=== PATIENT | female | born 1965 | race Caucasian/White ===

== ENCOUNTER 2023-02-18 07:21 | Day surgery (SDC) | payer OTHER, SELFPAY ==
[2023-02-18 07:39] VITALS: BMI 25.7
[2023-02-18 07:47] VITALS: BP 113/54; PULSE 61; RESP 16; TEMP 36.8; O2SAT 100
[2023-02-18 09:30] VITALS: BP 92/47; PULSE 71; RESP 16; TEMP 36.2; O2SAT 96
--- NOTE | 2023-02-18 09:30 | P.BOP_ITS ---
Brief Operative Note Date of Service: 02/18/23 Pre-op diagnosis: Spears's esophagus Post-op diagnosis: other (Same, Hiatal hernia) Procedure: EGD with biopsies Surgeon: Julio C Warren Anesthesia: MAC Was an Customer Insight Analyst used for this Procedure?: No Estimated blood loss (mL): 2.0 Pathology: other (A. EG Junction at 33cm) Condition: stable Disposition: PACU
--- NOTE | 2023-02-18 09:32 | P.BOP_ITS ---
I completed a Brief op note for this case. Brief Operative Note Date of Service: 02/18/23 Pre-op diagnosis: GERD, Spears's Esophagus Post-op diagnosis: other (Same, Hiatal hernia) Procedure: EGD with biopsies Surgeon: Julio C Warren Anesthesia: MAC Was an Assistant Golf Professional used for this Procedure?: No Estimated blood loss (mL): 2.0 Pathology: other (A. EG Junction at 33cm) Condition: stable Disposition: PACU
[2023-02-18 09:45] VITALS: BP 113/61; PULSE 74; RESP 16; TEMP 36.5; O2SAT 99
--- NOTE | 2023-02-18 10:14 | P.CONAN_ITS ---
HPI - Anesthesia Eval Consult details Narrative: screening [facility] Past Medical History Medical History (Updated 02/17/23 @ 11:58 by Carrie Oliver NP) Anxiety Back pain GERD (gastroesophageal reflux disease) History of ETOH abuse RLS (restless legs syndrome) Seasonal allergies Family History Family history of problems with anesthesia: No Surgical History Surgical History (Updated 02/18/23 @ 07:43 by Rosario Leslie) H/O carpal tunnel repair Hx of tonsillectomy Post-splenectomy (~1972) Status post trigger finger release History of Problems with Anesthesia: No Social History Social History Patient Tobacco Use Status: Former Tobacco user Quit Date: 2015 Tobacco use type: Cigarette Years Smoked: 15 Smoked in Last 30 Days: No Use of substances other than those prescribed or required for medical reasons: No Are you DNR?: No Advance Directives: No Advance Directives Information Provided: Yes Meds Allergies Allergy/AdvReac Type Severity Reaction Status Date / Time clarithromycin [From Biaxin] Allergy Intermediate Nausea Verified 02/18/23 07:45 Home Medications Medication Instructions Recorded Confirmed Last Taken Type buspirone 5 mg tablet 5 mg PO BID 02/17/23 02/17/23 Unknown History clonidine HCl 0.2 mg tablet 0.2 mg PO BEDTIME 02/17/23 02/17/23 Unknown History fluticasone propionate 50 1 spray intranasal DAILY 02/17/23 02/17/23 Unknown History mcg/actuation nasal spray,suspension gabapentin 300 mg tablet 300 mg PO DAILY 02/17/23 02/17/23 Unknown History omeprazole 20 mg capsule,delayed 20 mg PO DAILY 02/17/23 02/17/23 Unknown History release pramipexole 0.25 mg tablet 0.25 mg PO DAILY 02/17/23 02/17/23 Unknown History sertraline 25 mg tablet 25 mg PO DAILY 02/17/23 02/17/23 Unknown History spironolactone 50 mg tablet 50 mg PO DAILY 02/17/23 02/17/23 Unknown History suvorexant 20 mg tablet (Belsomra) 20 mg PO BEDTIME 02/17/23 02/17/23 Unknown History Exam Exam Date and Time: February 18, 2023 1014 Height,Weight and Vital Signs: Height 5 ft 3 in Weight 65.771 kg Last Vital Signs Temp 97.7 F 02/18/23 09:45 Pulse 74 02/18/23 09:45 Resp 16 02/18/23 09:45 BP 113/61 02/18/23 09:45 Pulse Ox 99 02/18/23 09:45 O2 Del Method Room Air 02/18/23 09:45 Airway Mallampati Class: I TM Dist: >3cm Neck ROM: Full Loose/Missing/Broken Teeth: No Heart: rr Lungs: cta Assessment and Plan Assessment Anesthesia Assessment: Anesthesia Plan Discussed and Chart Reviewed Final Anesthetic Review Family History of Problems with Anesthesia: No History of Problems with Anesthesia: No NPO: Yes ASA Class: II Final Preanesthetic Review: No Changes in Pt Med Stat, Meds/Allgs Chart Reviewed and Consent Obtained/Reviewed Patient Risk: Low Anesthetic Plan Anesthetic Plan: MAC: Disposition: Standard PACU
--- NOTE | 2023-02-18 10:17 | OP_ITS ---
DATE OF SERVICE: 02/18/2023 SURGEON: Julio C Warren MD INDICATIONS: The patient presents for evaluation of gastroesophageal reflux and Spears's esophagus. Full consent was obtained from her for this, including risks of bleeding and perforation. PREOPERATIVE DIAGNOSIS: POSTOPERATIVE DIAGNOSIS: PROCEDURE PERFORMED: Esophagogastroduodenoscopy with biopsy. ESTIMATED BLOOD LOSS: COMPLICATIONS: ANESTHESIA: Monitored anesthesia care. ASSISTANTS: SPECIMENS: PREOPERATIVE DIAGNOSES: Gastroesophageal reflux and Spears's esophagus. POSTOPERATIVE DIAGNOSES: Gastroesophageal reflux and Spears's esophagus, hiatal hernia. DESCRIPTION OF PROCEDURE: The patient was placed in the left lateral decubitus position. The Olympus video gastroscope was passed in the posterior oropharynx and upper esophagus under direct vision. The scope was passed slowly to the distal esophagus. The gastroesophageal junction appeared at 33 cm. Extending from this for less than 1 cm, there were 2 thin projections of Spears's-appearing mucosa. There is no evidence of any esophagitis nor any lesions. The scope entered the stomach. There was a moderate-sized hiatal hernia. The hiatal hernia mucosa appeared normal. The scope was advanced to the pylorus and the duodenum was cannulated to the descending portion. The duodenum including the bulb appeared normal without mass or ulceration. The scope was withdrawn back to the stomach. The gastric antrum and body appeared normal with good peristalsis. The scope was retroflexed visualizing the proximal stomach carefully, which appeared normal, without any sign of mass or ulceration. The scope was straightened and withdrawn back to the esophagus. Biopsies were obtained just above the EG junction from the small areas of Spears's-appearing mucosa. The scope was withdrawn through the remainder of the esophagus, which appeared normal. The scope was withdrawn from the patient. She tolerated the procedure well and was returned to recovery area in stable condition. IMPRESSION: 1. Small area of possible Spears s esophagus. 2. Hiatal hernia. PLAN: The results of the pathology will be checked. Assuming there is no dysplasia, I would recommend a repeat upper endoscopy in 3 years for further surveillance. She was advised to continue her daily omeprazole as she does report that is working well for her. She will otherwise see me on a p.r.n. basis. MD IZZY Pimentel/MARIA A / [phone] AMAURI
== END 2023-02-18 10:10 | disposition home or self-care (01) ==
PROVIDERS: PCP Physician Assistant; Visit Provider Internal Medicine
PROC: 0DJ08ZZ Inspection of Upper Intestinal Tract, Via Natural or Artificial Opening Endoscopic (ICD-10-PCS; CPT 43235; principal; 2023-02-18 08:30)
DX: K22.70 Barrett's esophagus without dysplasia (principal); K21.9 Gastro-esophageal reflux disease without esophagitis; K44.9 Diaphragmatic hernia without obstruction or gangrene; J30.2 Other seasonal allergic rhinitis; F10.21 Alcohol dependence, in remission; F41.1 Generalized anxiety disorder; Z90.81 Acquired absence of spleen; G25.81 Restless legs syndrome; Z79.899 Other long term (current) drug therapy; Z87.891 Personal history of nicotine dependence
CPT/HCPCS: 43239; 88305

== ENCOUNTER 2023-02-20 08:20 | Emergency (ER) | payer OTHER, SELFPAY ==
--- NOTE | ~2023-02-20 | US_ITS ---
EXAMINATION: US PELVIS CLINICAL INFORMATION: Left lower quadrant tenderness. The pain has subsided at the time of scanning COMPARISON: None available. TECHNIQUE: Ultrasound of the pelvis is performed using both transabdominal and transvaginal transducers along with Doppler. Transvaginal imaging is performed due to inadequate visualization transabdominally. FINDINGS: Uterus: The uterus is anteverted, anteflexed and measures 5.5 x 2.0 x 3.2 cm The double wall endometrial thickness is 0.1 cm. The uterus is smooth in contour and has normal myometrial echogenicity. No visible fibroid. Adnexa: Right ovary measures 1.1 x 0.6 x 0.6 cm and volume 0.2 mL. There is normal arterial and venous flow seen to the right ovary. No focal lesion seen. Left ovary is not visualized. There is no free fluid in the cul-de-sac. US/US pelvic and transvaginal IMPRESSION: Unremarkable uterus and right ovary. The left ovary is not seen..
--- NOTE | ~2023-02-20 | CT_ITS ---
EXAMINATION: CT ABDOMEN AND PELVIS WITH CONTRAST CLINICAL INFORMATION: Left lower quadrant pain COMPARISON: Previous pelvic ultrasound from earlier the same day TECHNIQUE: Multidetector volumetric images were obtained from the superior aspect of the liver through the pubic symphysis following administration 85 mL of Omnipaque 350 intravenous contrast. Sagittal and coronal reformatted images were obtained on the technologist's workstation. Oral contrast: Yes This CT examination was performed using dose optimization techniques as appropriate, variously including the following: *Automated exposure control *Adjustment of mA and/or kV according to patient size (this includes techniques or standardized protocols for targeted exams where dose is matched to indication/reason for exam; i.e. extremities or head) *Use of iterative reconstruction technique DLP: 464 mGy-cm FINDINGS: LUNG BASES: The visualized lung bases are unremarkable. LIVER, GALLBLADDER, AND BILIARY TREE: The liver is normal in size, shape, and attenuation. No focal hepatic lesion or biliary ductal dilatation is present. The gallbladder is unremarkable with no evidence of radiopaque gallstones, gallbladder wall thickening, or obvious pericholecystic inflammatory changes. PANCREAS: Unremarkable. SPLEEN: There is a splenosis or multiple splenules in the left upper quadrant and in the upper midline abdomen anterior to the left lobe of the liver. Largest ADRENAL GLANDS: Unremarkable. KIDNEYS AND URETERS: The kidneys are normal in size, shape, and attenuation. No hydronephrosis, hydroureter, or calculi seen. No perinephric stranding. BLADDER: Unremarkable. GASTROINTESTINAL TRACT: Fluid-filled loops of distal small bowel. 4 cm soft tissue mass in the cecum question representing stool. 8 mm high attenuation lesion adjacent to the lateral wall of the cecum, axial image 58 and coronal reconstructed image 35. Appearance is questionable for a diverticulum versus lymph node or possibly splenule. Constipation. Caliber change in the left colon and mild wall thickening of the mid and distal left colon questionable for mild colitis. Appendix not seen. Stomach is normal. No ascites or free air. ABDOMINAL WALL: Left inguinal hernia containing fat. LYMPH NODES: Prominent small bowel mesentery lymph nodes, largest adjacent to the cecum/proximal right colon. VASCULAR: Unremarkable. PELVIC VISCERA: Unremarkable. OSSEOUS STRUCTURES: Scoliosis and degenerative changes of the spine. CT/CT abdomen pelvis w IV con IMPRESSION: Multiple splenules or accessory spleens in the left upper quadrant and anterior to the lateral segment of the left lobe of the liver. Distended stool-filled proximal colon. Caliber change of the mid left colon question mild colitis of the distal colon and secondary partial obstruction. 4 cm intraluminal soft tissue mass in the cecum, question representing stool. Prominent adjacent mesenteric lymph nodes. 8 mm high attenuation soft tissue mass adjacent to the lateral wall of the cecum. Colonoscopy correlation recommended. Left inguinal hernia containing fat. Fleischner guidelines were followed.
--- NOTE | ~2023-02-20 | US_ITS ---
EXAMINATION: US PELVIS CLINICAL INFORMATION: Left lower quadrant tenderness. The pain has subsided at the time of scanning COMPARISON: None available. TECHNIQUE: Ultrasound of the pelvis is performed using both transabdominal and transvaginal transducers along with Doppler. Transvaginal imaging is performed due to inadequate visualization transabdominally. FINDINGS: Uterus: The uterus is anteverted, anteflexed and measures 5.5 x 2.0 x 3.2 cm The double wall endometrial thickness is 0.1 cm. The uterus is smooth in contour and has normal myometrial echogenicity. No visible fibroid. Adnexa: Right ovary measures 1.1 x 0.6 x 0.6 cm and volume 0.2 mL. There is normal arterial and venous flow seen to the right ovary. No focal lesion seen. Left ovary is not visualized. There is no free fluid in the cul-de-sac. US/US pelvic ovarian doppler IMPRESSION: Unremarkable uterus and right ovary. The left ovary is not seen..
[2023-02-20 08:26] VITALS: BP 150/96; PULSE 72; RESP 20; TEMP 36.6; O2SAT 100; BMI 25.7
--- NOTE | 2023-02-20 09:14 | ED_ITS ---
HPI - Abdominal Pain General Chief Complaint: Abdominal Pain Stated Complaint: pelvic pain Time Seen by Provider: 02/20/23 08:46 Source: patient Mode of arrival: ambulatory Limitations: no limitations History of Present Illness HPI narrative: Patient is a 57 year old female with history of anxiety, GERD presenting with pain in her left pelvic area since this morning. She reports that as she was getting ready for work this morning she developed 9/10 pain in her left pelvis/LLQ abd pain which she states worsened with sitting and improved with lying down. She states that she has not taken anything for the pain, and currently rates the pain a 2/10 while lying down. She denies additional symptoms at this time including nausea, vomiting, fever, chills, urinary frequency, urgency, dysuria, vaginal discharge/bleedingchest pain, palpitations, shortness of breath, diarrhea or constipation. Related Data Home Medications Medication Instructions Recorded Confirmed buspirone 5 mg tablet 5 mg PO BID 02/17/23 02/17/23 clonidine HCl 0.2 mg tablet 0.2 mg PO BEDTIME 02/17/23 02/17/23 fluticasone propionate 50 1 spray intranasal DAILY 02/17/23 02/17/23 mcg/actuation nasal spray,suspension gabapentin 300 mg tablet 300 mg PO DAILY 02/17/23 02/17/23 omeprazole 20 mg capsule,delayed 20 mg PO DAILY 02/17/23 02/17/23 release pramipexole 0.25 mg tablet 0.25 mg PO DAILY 02/17/23 02/17/23 sertraline 25 mg tablet 25 mg PO DAILY 02/17/23 02/17/23 spironolactone 50 mg tablet 50 mg PO DAILY 02/17/23 02/17/23 suvorexant 20 mg tablet (Belsomra) 20 mg PO BEDTIME 02/17/23 02/17/23 Allergies Allergy/AdvReac Type Severity Reaction Status Date / Time clarithromycin [From Biaxin] Allergy Intermediate Nausea Verified 02/18/23 07:45 Review of Systems Review of Systems Constitutional : No Weight loss, No Fever, No Chills, No Fatigue, No Malaise ENT/Mouth : No sore throat, No Rhinorrhea Eyes: No Eye Pain, No Swelling, No Redness Cardiovascular : No Chest Pain, No SOB, No Dyspnea on Exertion, No Orthopnea, No Edema, No Palpitations Respiratory : No Cough, No Sputum, No Wheezing Gastrointestinal : No Nausea, No Vomiting, No Diarrhea, No Constipation, + abdominal Pain, No Hematochezia, No Melena Genitourinary : No Dysuria, No Urinary Frequency, No Hematuria, + pelvic pain Musculoskeletal : No joint pain, No Myalgias, No Joint Swelling Skin : No Skin Lesions, No rash Neuro : No Weakness, No Numbness, No Dizziness, No Headache Psych : No Anxiety/Panic, No Depression All other systems reviewed and are negative Yes all other systems are reviewed and are negative [facility] Past Medical History Attestation statement: The following information was validated with the patient. Source: old records reviewed and nursing notes reviewed Medical History (Updated 02/20/23 @ 12:26 by JOEY Acosta) Anxiety Back pain GERD (gastroesophageal reflux disease) History of ETOH abuse RLS (restless legs syndrome) Seasonal allergies Surgical History (Updated 02/18/23 @ 07:43 by Rosario Leslie) H/O carpal tunnel repair Hx of tonsillectomy Post-splenectomy (~1972) Status post trigger finger release Social History Social History Alcohol intake: never Patient Tobacco Use Status: Former Tobacco user Quit Date: 2015 Tobacco use type: Cigarette Years Smoked: 15 Smoked in Last 30 Days: No Use of substances other than those prescribed or required for medical reasons: No Advance Directives: No Advance Directives Information Provided: Yes Patient : No Physical Exam ED Vital Signs: Vital Signs - 24 hr 02/20/23 08:26 02/20/23 11:17 Temperature 97.8 F 97.9 F Pulse Rate 72 63 Respiratory Rate 20 18 Blood Pressure 150/96 H 137/76 Pulse Oximetry 100 100 Oxygen Delivery Method Room Air Room Air BMI result Body Mass Index 25.7 vss Appearance: Alert.? Oriented X3.? No acute distress.? Head: Normocephalic, atraumatic, no step-offs or deformities Eyes: Pupils equal, round and reactive CVS: Normal heart rate and rhythm.? Pulses normal.? Respiratory: No respiratory distress.? Breath sounds normal.? Abdomen: Soft and very mild tenderness to left lower quadrant/inguinal region. Normoactive bowel sounds.? Skin: Skin warm and dry.? Normal skin color.? Normal skin turgor.? Extremities: No lower extremity edema.? No calf ttp. 5/5 strength to bilateral upper and lower extremities Neuro: Oriented X 3.? No motor deficit.? No sensory deficit. CN 2-12 intact Course Reevaluation(s) Reevaluation #1: CBC appears to be within normal limits, slight normocytic anemia noted. Chemistry unremarkable. Lipase within normal limits. Urine clean. US pelvic and transvaginal ultrasound with an unremarkable uterus and right ovary, left ovary is not visualized. However unremarkable pelvic exam on CT scan I do not suspect acute ovarian torsion. CT abdomen pelvis showing multiple splenules or accessory spleen size in the left upper quadrant and anterior to the lateral segment the left lobe of the liver, distended soft stool filled proximal colon, caliber changes in the left colon question mild colitis however patient without symptoms of colitis, I am also not concerned for partial obstruction, no nausea, vomiting or diarrhea. There are reactive mesenteric lymph nodes with high attenuation soft tissue mass adjacent to the lateral wall to cecum, colonoscopy recommended, I did educate patient on this finding and will give her GI follow- up. Also left inguinal hernia noted, this could be causing patient's discomfort. This case was discussed with surgery Dr. Kwong who recommends outpatient follow-up, nothing to be done emergently about this. Educated patient on diagnosis and treatment plan, answered all question, patient verbalizes understanding. At this time patient will be discharged home, advised to return with new or worsening symptoms. Educated on worrisome signs and symptoms and when to return. At this time I feel comfortable discharge home. Time: 12:25 Medical Decision Making Medical Decision Making [facility] Narrative: 1028 57-year-old female presents with complaints of left lower quadrant pain/pelvic pain that started this morning worsened with movement better at rest. Physical exam significant for mild tenderness to left lower quadrant tenderness to palpation. Concerns for possible diverticulitis versus hernia. I do not suspect ruptured ovarian cyst, ovarian torsion, ectopic . Will rule out pancreatitis, UTI, cystitis. I do not suspect obstructing uropathy or acute abdomen. Plan labs, imaging, urine. Differential Diagnosis Differential Diagnoses: The differential diagnosis associated with the presentation includes Concerns for possible diverticulitis versus hernia. I do not suspect ruptured ovarian cyst, ovarian torsion, ectopic . Will rule out pancreatitis, UTI, cystitis. I do not suspect obstructing uropathy or acute abdomen. Admission/Observation Consideration of admission/observation: Escalation of care including admission/observation considered I do not suspect patient will need admission or obs Consult Healthcare Provider Management of the patient was discussed with: Advertising Manager (general surgery ) Lab Data MDM Lab Attestation statement: I reviewed the patient's lab results. 02/20/23 10:38 02/20/23 10:38 Labs: Lab Results 02/20/23 02/20/23 02/20/23 Range/Units 09:39 10:38 10:38 WBC 7.2 (4.8-10.8) X10*3/uL RBC 3.73 L (4.20-5.50) X10*6/uL Hgb 11.6 L (12.0-16.0) g/dl Hct 35.7 L (37.0-47.0) % MCV 95.7 (80.0-98.0) fL MCH 31.1 (27.0-33.0) pg MCHC 32.5 (31.0-35.0) g/dl RDW 13.7 (11.0-16.0) % Plt Count 475 H (160-400) X10*3/uL MPV 9.2 L (9.4-12.3) fL Immature Gran % (Auto) 0.3 (0.0-0.4) % Neut % (Auto) 51.2 (45-73) % Lymph % (Auto) 35.2 (20-40) % Tate % (Auto) 11.0 (2-11) % Eos % (Auto) 1.3 (0-4) % Baso % (Auto) 1.0 (0-2) % Lymph # (Auto) 2.5 (1.2-4.9) X10*3/uL Tate # (Auto) 0.8 (0.1-1.2) X10*3/uL Eos # (Auto) 0.1 (0.0-0.4) X10*3/uL Baso # (Auto) 0.1 (0.0-0.2) X10*3/uL Abs Immat Gran (auto) 0.02 (0.00-0.03) X10*3/uL Absolute Neuts (auto) 3.7 (2.0-8.3) x10*3/uL Absolute Nucleated RBC 0.000 (0.0-0.012) X10*3/uL Nucleated RBC % (auto) 0.0 (0.0-0.2) /100WBC Sodium 138 (135-145) mmol/L Potassium 4.1 (3.3-5.1) mmol/L Chloride 102 (96-108) mmol/L Carbon Dioxide 27 (22-29) mmol/L Anion Gap 13 (12-20) BUN 9 (9-16) mg/dL Creatinine 0.75 (0.5-1.4) mg/dL Estim Creat Clear Calc 77.3 Estimated GFR > 60 Random Glucose 92 (60-115) mg/dL Calcium 9.7 (8.4-10.2) mg/dL Magnesium 2.0 (1.6-2.6) mg/dL Total Bilirubin 0.4 (0.0-1.0) mg/dL AST 23 (5-31) U/L ALT 19 (0-31) U/L Alkaline Phosphatase 62 (39-117) U/L Total Protein 7.4 (6.5-8.0) g/dL Albumin 4.0 (3.5-5.0) g/dL Lipase 23 (8-78) U/L Urine Color Yellow Urine Appearance Clear Urine pH 7.5 (5.0-9.0) Ur Specific [place] 1.015 (1.005-1.025) Urine Protein Negative (Neg-Trace) mg/dL Urine Glucose (UA) Negative (Negative) mg/dL Urine Ketones Negative (Negative) mg/dL Urine Blood Negative (Negative) Urine Nitrite Negative (Negative) Ur Leukocyte Esterase Small (1+) H (Negative) Urine RBC 0-2 (0-2) /HPF Urine WBC 0-5 (0-5) /HPF Ur Squamous Epith Cells 0-2 (0-2) /HPF Urine Bacteria None Seen (None Seen) Hyaline Casts 0-2 (0-2) /LPF Independent Interpretation I performed an independent interpretation of an: Ultrasound (US/US pelvic and transvaginal IMPRESSION: Unremarkable uterus and right ovary. The left ovary is not seen..) and CT Scan (CT/CT abdomen pelvis w IV con IMPRESSION: Multiple splenules or accessory spleens in the left upper quadrant and anterior to the lateral segment of the left lobe of the liver. Distended stool-filled proximal colon. Caliber change of the mid left colon question mild colitis of the distal colon and ) Radiology Impression Discussion of test interpretation with radiology: I have reviewed the radiologist's reading. Prescription Management I considered prescription management with: Pain Medication Core Measures AMI core measures followed: Yes Measure exclusions: not indicated Medications Administered Discontinued Medications Generic Name Dose Route Start Last Admin Trade Name Karen PRN Reason Stop Dose Admin Iohexol 100 ml 02/20/23 11:12 02/20/23 11:12 Iohexol 350 Mg/Ml 100 Ml Infus..Btl IV 02/20/23 11:13 100 ml ONCE ONE Administration Critical Care Time Critical Care Time Critical Care Time: Yes Total Critical Care Time: 35 Attestation: I attest to this time spent taking care of the patient, obtaining history, physical, reviewing labs, imaging, speaking to my attending, speaking to specialist. Discharge Plan Discharge Clinical Impression: Abdominal pain, LLQ, Hernia, inguinal, left, Mass of soft tissue Patient Disposition: Home, Self-Care Instructions: Abdominal Pain (ED), Pelvic Pain (ED) Additional Instructions: Take your medications as prescribed. If you were prescribed antibiotics today, it is important that you take your medication to their entirety, do not skip any doses, do not finish them early. Follow-up with your primary care provider this week. Follow-up with OBGYN if needed. Return to the emergency department with new or worsening symptoms. Such as fevers, chills, chest pain, shortness of breath, nausea, vomiting, dizziness, headache, vision changes, lethargy In case of emergency call 911 CT/CT abdomen pelvis w IV con IMPRESSION: Multiple splenules or accessory spleens in the left upper quadrant and anterior to the lateral segment of the left lobe of the liver. ? Distended stool-filled proximal colon. Caliber change of the mid left colon question mild colitis of the distal colon and secondary partial obstruction. 4 cm intraluminal soft tissue mass in the cecum, question representing stool. Prominent adjacent mesenteric lymph nodes. 8 mm high attenuation soft tissue mass adjacent to the lateral wall of the cecum. Colonoscopy correlation recommended. ? Left inguinal hernia containing fat. ? Fleischner guidelines were followed. US/US pelvic and transvaginal IMPRESSION: Unremarkable uterus and right ovary. The left ovary is not seen.. Prescriptions: No Action buspirone 5 mg Tablet 5 mg PO BID clonidine HCl 0.2 mg Tablet 0.2 mg PO BEDTIME pramipexole 0.25 mg Tablet 0.25 mg PO DAILY sertraline 25 mg Tablet 25 mg PO DAILY omeprazole 20 mg Capsule,Delayed Release(Dr/Ec) 20 mg PO DAILY fluticasone propionate 50 mcg/actuation [place],Suspension 1 spray INTRANASAL DAILY Rx Instructions: administer into each nostril spironolactone 50 mg Tablet 50 mg PO DAILY gabapentin 300 mg Tablet 300 mg PO DAILY Belsomra 20 mg Tablet 20 mg PO BEDTIME Referrals: [facility] [place] [facility] [Provider Group] - 2 days Carrie Lockwood PA [Primary Care Provider] - 2 days Stand Alone Forms: Work/School Release
[2023-02-20 09:46] LABS: Appearance Urine Clear; Color Urine Yellow; Glucose Urine UA Negative (Negative); Leukocyte Esterase Urine Small (1+) (Negative); Nitrite Urine Negative (Negative); PH 7.5 (5.0-9.0); Specific Gravity - Urine 1.015 (1.005-1.025); UMIC TRIGGER UACC YES; Urine Blood Negative (Negative); Urine Ketones Negative (Negative); Urine Protein Negative (Neg-Trace)
--- NOTE | 2023-02-20 09:50 | PC.NURSE ---
pt off to ultrasound via stretcher.
[2023-02-20 10:02] LABS: Bacteria Urine None Seen (None Seen); Hyaline Casts Urine 0-2 /LPF (0-2); RBC Urine 0-2 /HPF (0-2); Squamous Epithelial Cell Urine 0-2 /HPF (0-2); UACC Culture Trigger YES; WBC Urine 0-5 /HPF (0-5)
[2023-02-20 10:43] LABS: MANUAL DIFF FLAG NO
[2023-02-20 10:46] LABS: Basophils Absolute Auto 0.1 X10*3/uL (0.0-0.2); Eosinophils Absolute Auto 0.1 X10*3/uL (0.0-0.4); Eosinophils Percent Auto 1.3 % (0-4); Hematocrit 35.7 % (37.0-47.0); Hemoglobin 11.6 g/dl (12.0-16.0); Imm Gran Abs Auto 0.02 X10*3/uL (0.00-0.03); Imm Gran Pct Auto 0.3 % (0.0-0.4); Lymphocytes Absolute Auto 2.5 X10*3/uL (1.2-4.9); Lymphocytes Percent Auto 35.2 % (20-40); Mean Corpuscular HGB Conc 32.5 g/dl (31.0-35.0); Mean Corpuscular Hemoglobin 31.1 pg (27.0-33.0); Mean Corpuscular Volume 95.7 fL (80.0-98.0); Mean Platelet Volume 9.2 fL (9.4-12.3); Monocytes Absolute Auto 0.8 X10*3/uL (0.1-1.2); Neutrophils Absolute Auto 3.7 x10*3/uL (2.0-8.3); Neutrophils Percent Auto 51.2 % (45-73); Platelet Count 475 X10*3/uL (160-400); Red Blood Count 3.73 X10*6/uL (4.20-5.50); Red Cell Distribution Width 13.7 % (11.0-16.0); White Blood Count 7.2 X10*3/uL (4.8-10.8)
[2023-02-20 10:59] LABS: Alanine Aminotransferase 19 U/L (0-31); Alkaline Phosphatase 62 U/L (39-117); Anion Gap 13 (12-20); Aspartate Amino Transferase 23 U/L (5-31); Bilirubin Total 0.4 mg/dL (0.0-1.0); Blood Urea Nitrogen 9 mg/dL (9-16); Calcium 9.7 mg/dL (8.4-10.2); Carbon Dioxide 27 mmol/L (22-29); Chloride 102 mmol/L (96-108); Creatinine Clr Calc Pharmacy 77.3; Estimated Glomerular Filt Rate > 60; Glucose Random 92 mg/dL (60-115); Lipase 23 U/L (8-78); Potassium 4.1 mmol/L (3.3-5.1); Sodium 138 mmol/L (135-145); Total Protein 7.4 g/dL (6.5-8.0)
[2023-02-20] MEDS: iohexoL 350 MG/ML 100 ML INFUS..BTL IV (11:12)
[2023-02-20 11:17] VITALS: BP 137/76; PULSE 63; RESP 18; TEMP 36.6; O2SAT 100
[2023-02-20 12:38] LABS: UPreg QC Valid YES; Urine Pregnancy NEGATIVE (NEGATIVE)
== END 2023-02-20 12:57 | disposition home or self-care (01) ==
PROVIDERS: Physician Assistant; Emergency Provider Emergency Medicine; PCP Physician Assistant
DX: K40.90 Unilateral inguinal hernia, without obstruction or gangrene, not specified as recurrent (principal); R10.32 Left lower quadrant pain; R10.2 Pelvic and perineal pain; Z79.899 Other long term (current) drug therapy; Z87.891 Personal history of nicotine dependence
CPT/HCPCS: 36415; 74177; 76830; 76856; 80053; 81001; 81025; 83690; 83735; 84702; 85025; 87086; 93975; 99284; Q9967

== ENCOUNTER → 2023-02-26 15:04 | Outpatient (BNVA) | payer OTHER, SELFPAY | PROVIDERS: PCP Physician Assistant; Visit Provider Surgery ==

== ENCOUNTER 2023-03-06 09:00 | Day surgery (SDC) | payer OTHER, SELFPAY ==
--- NOTE | 2023-03-05 08:56 | P.CONAN_ITS ---
Documented by User: Carrie Oliver NP 03/05/23 09:09 HPI - Anesthesia Eval Consult details Narrative: 57yo F for Hernia Repair Inguinal with mesh s/p EGD 02/18/23 with MAC [facility] Active Problems Active Problems: All Active Problems (Updated 02/26/23 @ 15:25 by New Christy MD) Inguinal hernia of left side without obstruction or gangrene (Acute) Past Medical History Medical History Anxiety Back pain GERD (gastroesophageal reflux disease) History of ETOH abuse RLS (restless legs syndrome) Seasonal allergies Family History Family history of problems with anesthesia: No Surgical History Surgical History H/O carpal tunnel repair Hx of tonsillectomy Post-splenectomy (~1972) Status post trigger finger release History of Problems with Anesthesia: No Social History Social History Alcohol intake: never Patient Tobacco Use Status: Former Tobacco user Quit Date: 2015 Tobacco use type: Cigarette Years Smoked: 15 Are you DNR?: No Advance Directives: No Advance Directives Information Provided: Yes Nutrition Risks: No Nutritional Risk Meds Allergies Allergy/AdvReac Type Severity Reaction Status Date / Time clarithromycin [From Biaxin] Allergy Intermediate Nausea Verified 03/06/23 09:36 Home Medications Medication Instructions Recorded Confirmed Last Taken Type buspirone 5 mg tablet 5 mg PO BID 02/17/23 02/17/23 Unknown History clonidine HCl 0.2 mg tablet 0.2 mg PO BEDTIME 02/17/23 02/17/23 Unknown History fluticasone propionate 50 1 spray intranasal DAILY 02/17/23 02/17/23 Unknown History mcg/actuation nasal spray,suspension gabapentin 300 mg tablet 300 mg PO DAILY 02/17/23 02/17/23 Unknown History omeprazole 20 mg capsule,delayed 20 mg PO DAILY 02/17/23 02/17/23 Unknown History release pramipexole 0.25 mg tablet 0.25 mg PO DAILY 02/17/23 02/17/23 Unknown History suvorexant 20 mg tablet (Belsomra) 20 mg PO BEDTIME 02/17/23 02/17/23 Unknown History Exam Exam Date and Time: March 05, 2023 0856 Pertinent Lab Results Pertinent Lab Results: Laboratory Tests 02/20/23 02/20/23 10:38 10:38 WBC 7.2 Hgb 11.6 L Hct 35.7 L Plt Count 475 H Sodium 138 Potassium 4.1 Chloride 102 Carbon Dioxide 27 BUN 9 Creatinine 0.75 Assessment and Plan Assessment Anesthesia Assessment: Chart Reviewed Final Anesthetic Review Family History of Problems with Anesthesia: No History of Problems with Anesthesia: No Documented by User: Seda Lyons MD 03/06/23 10:06 [facility] Past Medical History Medical History Anxiety Back pain GERD (gastroesophageal reflux disease) History of ETOH abuse RLS (restless legs syndrome) Seasonal allergies Surgical History Surgical History H/O carpal tunnel repair Hx of tonsillectomy Post-splenectomy (~1972) Status post trigger finger release Social History Social History Alcohol intake: never Patient Tobacco Use Status: Former Tobacco user Quit Date: 2015 Tobacco use type: Cigarette Years Smoked: 15 Are you DNR?: No Advance Directives: No Advance Directives Information Provided: Yes Nutrition Risks: No Nutritional Risk Meds Allergies Allergy/AdvReac Type Severity Reaction Status Date / Time clarithromycin [From Biaxin] Allergy Intermediate Nausea Verified 03/06/23 09:36 Home Medications Medication Instructions Recorded Confirmed Last Taken Type buspirone 5 mg tablet 5 mg PO BID 02/17/23 02/17/23 Unknown History clonidine HCl 0.2 mg tablet 0.2 mg PO BEDTIME 02/17/23 02/17/23 Unknown History fluticasone propionate 50 1 spray intranasal DAILY 02/17/23 02/17/23 Unknown History mcg/actuation nasal spray,suspension gabapentin 300 mg tablet 300 mg PO DAILY 02/17/23 02/17/23 Unknown History omeprazole 20 mg capsule,delayed 20 mg PO DAILY 02/17/23 02/17/23 Unknown History release pramipexole 0.25 mg tablet 0.25 mg PO DAILY 02/17/23 02/17/23 Unknown History suvorexant 20 mg tablet (Belsomra) 20 mg PO BEDTIME 02/17/23 02/17/23 Unknown History Exam Airway Mallampati Class: II TM Dist: >3cm Neck ROM: Full Heart: rrr Lungs: cta Assessment and Plan Assessment Anesthesia Assessment: Anesthesia Plan Discussed Final Anesthetic Review NPO: Yes ASA Class: II Final Preanesthetic Review: No Changes in Pt Med Stat, Meds/Allgs Chart Reviewed, Consent Obtained/Reviewed and Anes Risks/Benef Reviewed Patient Risk: Low Anesthetic Plan Anesthetic Plan: MAC: Disposition: Standard PACU
--- NOTE | 2023-03-05 11:24 | MHC.SHP ---
Pre-Procedural Eval Section A Date of Service: 03/05/23 The patient is an INPATIENT: No Changes since office visit: No Cold of Flu in the past 2 weeks, No New Medical Problems, No Changes in Medication and No Patient answered all questions The History & Physical has been completed within 30 days and I have reviewed it.: Yes Section B Chief Complaint: Unilateral inguinal hernia, without obstruction Allergies: Allergies Allergy/AdvReac Type Severity Reaction Status Date / Time clarithromycin [From Biaxin] Allergy Intermediate Nausea Verified 02/26/23 15:13 Plan I have reviewed the history and physical and performed a pertinent physical examination on my patient. No changes have occurred unless specified. Time Spent With Patient Time: Total time managing care of this patient today ____ minutes.
[2023-03-06 09:18] VITALS: BMI 25.7
[2023-03-06 09:28] VITALS: BP 97/60; PULSE 81; RESP 18; TEMP 36.7; O2SAT 96
[2023-03-06] MEDS: Lactated Ringers 1,000 ML 100 ML IVCONT (09:30)
--- NOTE | 2023-03-06 10:01 | PC.NURSE ---
dr. sandoval and anesthesia aware that patient did take his fish oil this morning. okay to proceed.
--- NOTE | 2023-03-06 10:28 | W.PM.OPN ---
Operative Note Operative Note Date of Service: 03/06/23 Narrative: Preoperative diagnosis: [] Left inguinal hernia Postop diagnosis: [] Same Procedure [] open left inguinal hernia repair with Bard mesh Surgeon: [] [employer] Specialist: [] andrea Monte Type of Anesthesia: [] MAC Indication for surgery: [] Large direct left inguinal hernia Findings: [] Patient brought to the operating room, placed on operative table in supine position, after adequate level of MAC anesthesia was induced, the left groin was prepped and draped in usual sterile fashion. Ilioinguinal block and local infiltration with 0.5% Marcaine/1% lidocaine was performed. A small left lorelei inguinal incision was made and carried down through skin, subcutaneous tissue, Karly's fascia. External oblique fibers were opened in their direction with care to isolate and preserve the ilioinguinal nerve throughout the procedure. Exploration of the inguinal canal demonstrated very large direct inguinal hernia. This was circumferentially dissected out and reduced. A no direct hernia was demonstrated. A Bard plug was placed in this defect and sutured inferiorly to the inguinal ligament and superiorly to the transversalis fascia using interrupted Ethibond suture. At completion of procedure, mesh was in good position with no tension. It covered the entire inguinal floor.. Wound was irrigated, secured hemostasis, and closed in the following manner; external oblique fascia was closed using running 2-0 Vicryl suture. Karly's fascia was reapproximated using interrupted 3-0 Vicryl sutures. Interrupted inverted deep dermal 3-0 Vicryl sutures followed by running subcuticular 4-0 Vicryl sutures were placed. Steri-Strips and sterile dressings were applied. Patient tolerated the procedure well and emerged anesthesia in stable condition. EBL minimal
[2023-03-06 10:35] VITALS: BP 120/68; PULSE 76; RESP 16; TEMP 36.2; O2SAT 98
[2023-03-06 10:50] VITALS: BP 130/68; PULSE 65; RESP 16; O2SAT 97
[2023-03-06] MEDS: oxyCODONE HCl Immed Release 5 MG TABLET PO (10:56)
[2023-03-06] MEDS: fentaNYL citrate/PF 100 MCG/2 ML VIAL 25 MCG IVPUSH (10:56)
[2023-03-06 11:01] VITALS: BP 125/63; PULSE 66; RESP 16; O2SAT 94
[2023-03-06 11:05] VITALS: BP 125/63; PULSE 64; RESP 16; TEMP 36.3; O2SAT 96
== END 2023-03-06 12:05 | disposition home or self-care (01) ==
PROVIDERS: PCP Physician Assistant; Visit Provider Surgery
PROC: (CPT 49505; principal; 2023-03-06 10:20)
DX: K40.90 Unilateral inguinal hernia, without obstruction or gangrene, not specified as recurrent (principal); K21.9 Gastro-esophageal reflux disease without esophagitis; F10.11 Alcohol abuse, in remission; F41.1 Generalized anxiety disorder; Z90.81 Acquired absence of spleen; Z79.899 Other long term (current) drug therapy; Z88.1 Allergy status to other antibiotic agents; Z87.891 Personal history of nicotine dependence
CPT/HCPCS: 49505; C1781; J0690; J1100; J2250; J3010

== ENCOUNTER 2023-03-20 09:27 | Outpatient (AMB) | payer OTHER, SELFPAY ==
[2023-03-20 09:33] VITALS: BP 116/70; PULSE 86
--- NOTE | 2023-03-20 09:33 | MHC.OFFVIS ---
Intake Vital Signs 03/20/23 09:33 Weight 144 lb BP 116/70 Blood Pressure Location Rt brachial Position Sitting Pulse 86 Intake Visit Reasons: S/P LIH repair w/mesh Intake Note: Patient here s/p LIH repair w/mesh. Patient reports incisions healing well. Denies bleeding or oozing. Patient states abd feels tight. Still taking pain meds at night. Inspection Supervisor Required: No Accompanied by: Self / Same As Patient Allergies clarithromycin [From Biaxin] Allergy (Intermediate, Verified 03/20/23 09:34) Nausea HPI HPI Comments History of Present Illness Details Patient is status post left inguinal hernia repair. She is doing well. She is tolerating her diet, she is having normal bowel habits. Aside from mild incisional discomfort she is doing well. Activity is slowly but steadily increasing. [facility] Medical History Anxiety Back pain GERD (gastroesophageal reflux disease) History of ETOH abuse RLS (restless legs syndrome) Seasonal allergies Surgical History H/O carpal tunnel repair Hx of tonsillectomy Post-splenectomy (~1972) Status post trigger finger release Social History Alcohol intake: never Patient Tobacco Use Status: Former Tobacco user Quit Date: 2015 Tobacco use type: Cigarette Years Smoked: 15 Physical Exam Vital Signs: Last Vital Signs Pulse 86 03/20/23 09:33 BP 116/70 03/20/23 09:33 GI Other: Abdomen soft. Wound clean dry and intact. Assessment & Plan Assessment & Plan (1) Inguinal hernia of left side without obstruction or gangrene: Code(s): K40.90 - Unilateral inguinal hernia, without obstruction or gangrene, not specified as recurrent Plan Patient has been given local wound instructions, and will follow-up p.r.n. Coding Level of Care Code Global (63728) Diagnoses Inguinal hernia of left side without obstruction or gangrene K40.90
== END 2023-03-20 09:57 | disposition home or self-care (01) ==
PROVIDERS: PCP Physician Assistant; Visit Provider Surgery
DX: K40.90 Unilateral inguinal hernia, without obstruction or gangrene, not specified as recurrent (principal)
CPT/HCPCS: 99024

== ENCOUNTER → 2023-03-20 09:27 | Outpatient (BNVA) | payer OTHER, SELFPAY | PROVIDERS: PCP Physician Assistant; Visit Provider Surgery ==

== ENCOUNTER 2023-11-20 10:15 | Day surgery (SDC) | payer OTHER, SELFPAY ==
[2023-11-20 10:48] VITALS: BMI 22.3
[2023-11-20 10:51] VITALS: BP 125/79; PULSE 74; RESP 18; TEMP 36.6; O2SAT 98
[2023-11-20] MEDS: Lactated Ringers 1,000 ML 50 ML IVCONT (11:05)
--- NOTE | 2023-11-20 11:14 | P.CONAN_ITS ---
[facility] Active Problems Active Problems: All Active Problems (Updated 02/26/23 @ 15:25 by New Christy MD) Inguinal hernia of left side without obstruction or gangrene (Acute) Past Medical History Medical History Anxiety Back pain GERD (gastroesophageal reflux disease) History of ETOH abuse RLS (restless legs syndrome) Seasonal allergies Family History Family history of problems with anesthesia: No Surgical History Surgical History H/O carpal tunnel repair Hx of tonsillectomy Post-splenectomy (~1972) Status post trigger finger release History of Problems with Anesthesia: No Social History Social History Alcohol intake: never Patient Tobacco Use Status: Former Tobacco user Quit Date: many years Tobacco use type: Cigarette Years Smoked: 15 Use of substances other than those prescribed or required for medical reasons: No Are you DNR?: No Advance Directives: No Advance Directives Information Provided: Yes Meds Allergies Allergy/AdvReac Type Severity Reaction Status Date / Time clarithromycin [From Biaxin] Allergy Intermediate Nausea Verified 03/20/23 09:34 Active Medications: Current Medications Lactated Ringer's (Lr) 1,000 mls @ 50 mls/hr IVCONT .Q20H HOMERO Last Admin: 11/20/23 11:05 Dose: 50 mls/hr Sodium Biphosphate/Sodium Phosphate (Sodium Phosphate,Braxton-Dibasic 133 Ml Enema) 133 ml RI ONCE PRN PRN Reason: Poor Colonoscopy Prep Results Home Medications Medication Instructions Recorded Confirmed Last Taken Type buspirone 5 mg tablet 5 mg PO BID 02/17/23 11/20/23 Unknown History clonidine HCl 0.2 mg tablet 0.2 mg PO BEDTIME 02/17/23 11/20/23 Unknown History fluticasone propionate 50 1 spray intranasal DAILY 02/17/23 11/20/23 Unknown History mcg/actuation nasal spray,suspension gabapentin 300 mg tablet 300 mg PO DAILY 02/17/23 11/20/23 Unknown History omeprazole 20 mg capsule,delayed 20 mg PO DAILY 02/17/23 11/20/23 Unknown History release pramipexole 0.25 mg tablet 0.25 mg PO DAILY 02/17/23 11/20/23 Unknown History suvorexant 20 mg tablet (Belsomra) 20 mg PO BEDTIME 02/17/23 11/20/23 Unknown History Exam Height,Weight and Vital Signs: Height 5 ft 3 in Weight 57.062 kg Last Vital Signs Temp 97.9 F 11/20/23 10:51 Pulse 74 11/20/23 10:51 Resp 18 11/20/23 10:51 BP 125/79 11/20/23 10:51 Pulse Ox 98 11/20/23 10:51 O2 Del Method Room Air 11/20/23 10:51 Airway Mallampati Class: I TM Dist: >3cm Neck ROM: Full Loose/Missing/Broken Teeth: No Heart: rrr Lungs: cta b/l Assessment and Plan Assessment Anesthesia Assessment: Anesthesia Plan Discussed and Chart Reviewed Final Anesthetic Review Family History of Problems with Anesthesia: No History of Problems with Anesthesia: No NPO: Yes ASA Class: II Final Preanesthetic Review: No Changes in Pt Med Stat, Meds/Allgs Chart Reviewed, Consent Obtained/Reviewed and Anes Risks/Benef Reviewed Patient Risk: Intermediate Procedure Risk: Intermediate Anesthetic Plan Anesthetic Plan: MAC: Disposition: Standard PACU
--- NOTE | 2023-11-20 12:14 | PM.OP ---
Brief Operative Note Date of Service: 11/20/23 Pre-op diagnosis: Abnormal CT of colon Post-op diagnosis: other (Diverticulosis) Procedure: Colonoscopy to the cecum and TI Surgeon: Julio C Warren MD Anesthesia: MAC Was an Robotics Systems Engineer used for this Procedure?: No Estimated blood loss (mL): 0 Pathology: none sent Condition: stable Disposition: PACU
[2023-11-20 12:16] VITALS: BP 102/62; PULSE 87; RESP 12; TEMP 36.2; O2SAT 95
--- NOTE | 2023-11-20 12:27 | OP_ITS ---
DATE OF SERVICE: 11/20/2023 SURGEON: Julio C Warren MD INDICATIONS: The patient presents for evaluation of abnormal CT scan of colon. Full consent obtained from her for this, including risks of bleeding and perforation. PREOPERATIVE DIAGNOSIS: Abnormal CT scan of colon. POSTOPERATIVE DIAGNOSIS: PROCEDURE PERFORMED: Colonoscopy to the cecum and terminal ileum. ESTIMATED BLOOD LOSS: COMPLICATIONS: ANESTHESIA: Monitored anesthesia care. ASSISTANTS: SPECIMENS: POSTOPERATIVE DIAGNOSES: Abnormal CT scan of colon, diverticulosis and internal hemorrhoids. DESCRIPTION OF PROCEDURE: The patient was placed in the left lateral decubitus position. The digital rectal exam revealed no abnormalities. The Olympus video pediatric colonoscope was entered into the rectum and advanced easily to the cecum. Once in the cecum, I did identify normal-appearing cecal pouch with appendiceal orifice and a normal-appearing ileocecal valve. The entire cecum was well visualized and appeared normal. The terminal ileum was cannulated and appeared normal. The scope was slowly withdrawn assessing all mucosal surfaces carefully. Preparation was excellent. I did not visualize any sign of polyps, colitis, nor angiodysplasia. There was a mild amount of sigmoid diverticulosis. In the rectum, scope was retroflexed visualizing internal hemorrhoids, but no other pathology. The rectal mucosa appeared normal. The scope was straightened and withdrawn from the patient. She tolerated the procedure well and was returned to recovery area in stable condition. IMPRESSION: 1. Sigmoid diverticulosis. 2. Internal hemorrhoids. PLAN: I would recommend a repeat colonoscopy in 10 years for further screening given the negative exam and no family history of colon cancer. 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 Julio C Warren MD RMLizzie/MODL / [id number]
[2023-11-20 12:31] VITALS: BP 134/74; PULSE 72; RESP 16; TEMP 36.3; O2SAT 100
== END 2023-11-20 12:40 | disposition home or self-care (01) ==
PROVIDERS: PCP Physician Assistant; Visit Provider Internal Medicine
PROC: 0DJD8ZZ Inspection of Lower Intestinal Tract, Via Natural or Artificial Opening Endoscopic (ICD-10-PCS; CPT 45378; principal; 2023-11-20 11:30)
DX: R93.3 Abnormal findings on diagnostic imaging of other parts of digestive tract (principal); K57.30 Diverticulosis of large intestine without perforation or abscess without bleeding; K64.8 Other hemorrhoids; K59.00 Constipation, unspecified; K22.70 Barrett's esophagus without dysplasia; K21.9 Gastro-esophageal reflux disease without esophagitis; M54.9 Dorsalgia, unspecified; J30.2 Other seasonal allergic rhinitis; F41.9 Anxiety disorder, unspecified; G25.81 Restless legs syndrome; Z79.899 Other long term (current) drug therapy; Z87.891 Personal history of nicotine dependence; Z98.890 Other specified postprocedural states
CPT/HCPCS: 45378; J2704

== ENCOUNTER 2025-05-11 12:09 | Outpatient (REF) | payer OTHER, SELFPAY ==
--- OUTSIDE RECORDS SUMMARY | 2023-11-20 07:10 | XMS_ITS ---
Author Organization [facility] Address [address] [place] [address] Care Team Providers Care Forest Worker Name Role Phone GUY QUESADA Primary Care Provider Julio C Knox [phone] REASON FOR VISIT constipation, abn ct scan GI tract Problems Problem Type SNOMED Code ICD Code Onset Dates Problem Status W/U Status Risk Notes Problem Diverticular disease of colon (422139439) Diverticulosis of large intestine without perforation or abscess without bleeding (K57.30) Active confirmed Encounters Encounter Location Date Provider Diagnosis [facility] [address] [place] [phone] 11/20/2023 Julio C Warren Abnormal CT scan, colon R93.3 ; Diverticulosis of large intestine without perforation or abscess without bleeding K57.30 and Other hemorrhoids K64.8 Assessments Encounter Date Diagnosis (ICD Code) Assessment Notes Treatment Notes Treatment Clinical Notes Section Notes 11/20/[address] scan, colon (ICD-10 - R93.3) 11/20/2023 Diverticulosis of large intestine without perforation or abscess without bleeding (ICD-10 - K57.30) 11/20/2023 Other hemorrhoids (ICD-10 - K64.8) Plan Of Treatment Next Appt Details Provider Name:Julio C Warren , 12/14/2025 09:00:00 AM, [address], [address], [place], [address], Progress Notes * CHARLEY BANUELOSB:1964 (60 yo F)Acc No.[id number]:11/20/2023 COLON WITH MAC Patient: BENJAMIN ESQUIVEL Provider: Yaquelin Warren MD :1965 A ge:58 Y S ex:Female Date:11/20/2023 Address:[address] [place], [place] [id number] Pcp:GUY QUESADA Subjective: * Chief Complaints: * 1 . constipation, abn ct scan GI tract. * Medical History: Objective: * Vitals: Assessment: * Assessment: 1. A bnormal CT scan, colon - R93.3 (Primary) 2 . D iverticulosis of large intestine without perforation or abscess without bleeding - K57.30 3 . O ther hemorrhoids - K64.8 Plan: * Treatment: * Procedure Codes: 4 5378 DIAGNOSTIC COLONOSCOPY * * The named appointment provid er may or may not be the originator of this progress note, and it is not deemed complete until electronically signed by the appointment provider. Sign off status: Pending * Provider: Yaquelin Warren MD Date: 0 11/20/2023 Generated for Charly willis/Aga/Marlynitting on: 0 05/11/2025 01:39 PM EDT
[2025-05-11 13:13] LABS: MANUAL DIFF FLAG NO
[2025-05-11 13:15] LABS: Hematocrit 38.2 % (37.0-47.0); Hemoglobin 12.6 g/dl (12.0-16.0); Imm Gran Abs Auto 0.01 X10*3/uL (0.00-0.03); Imm Gran Pct Auto 0.2 % (0.0-0.4); Lymphocytes Absolute Auto 2.5 X10*3/uL (1.2-4.9); Mean Corpuscular HGB Conc 33.0 g/dl (31.0-35.0); Mean Corpuscular Hemoglobin 31.7 pg (27.0-33.0); Mean Corpuscular Volume 96.2 fL (80.0-98.0); NRBC Abs Auto 0.000 X10*3/uL (0.0-0.012); NRBC Pct Auto 0.0 /100WBC (0.0-0.2); Platelet Count 442 X10*3/uL (160-400); Red Blood Count 3.97 X10*6/uL (4.20-5.50); White Blood Count 6.5 X10*3/uL (4.8-10.8)
[2025-05-11 13:36] LABS: Iron 128 mcg/dL (30-160); Percent Iron Saturation 43 % (15-50); Total Iron Binding Capacity 299 mcg/dL (228-428); Unsaturated Iron Binding 171 ug/dL
--- OUTSIDE RECORDS SUMMARY | 2025-05-11 13:39 | XMS_ITS | Encounter Summary ---
Author Organization [facility] Address [address] [place] [address] Phone Care Team Providers Care Gas Plant Specialist Name Role Phone Chrissy Baker NP Primary Care Provider [phone] Carrie Gallardo Primary Care Provider [phone] Encounter Details Date Type Department Care Team (Late st Contact Info) Description 05/10/2021 Prep for Surgery [facility] [address] [place] [address] Anabella Tony MD [address] [place] [address] Orthopedics & Sports Medicine, [place] [address] [email or web address] Social History Tobacco Use Types Packs/Day Years Used Date Smoking Tobacco: Former Cigarettes Q uit: 2008 Smokeless Tobacco: Never Alcohol Use Standard Drinks/Week Comments No 0 (1 standard drink = 0.6 oz pur e alcohol) 2004 quit Comments No Sex and Gender Information Value Date Recorded Sex Assigned at Not on file Legal Sex Female 9:39 PM EDT Gender Identity Not on file Sexual Orientation Not on file documented as of this encounter Plan of Treatment Not on file documented as of this encounter Visit Diagnoses Not on filedocumented in this encounter Additional Health Concerns Infection Onset Date Last Indicated Resolved Time MRSA 11/24/2022 11/24/2022 11/23/2024 1:21 AM EDT documented as of this encounter Care Teams Gas Plant Specialist Relationship Specialty Start Date End Date Chrissy Baker NP [address] [place] [address] PCP - General 06/25/17 12/29/21 Carrie Gallardo PA [address] [place] [address] [email or web address] PCP - General 12/30/21 documented as of this encounter Additional Source Comments The information contained in this document represents components of the legal health record. It is not the complete legal health record.[facility]
--- OUTSIDE RECORDS SUMMARY | 2025-05-11 13:39 | XMS_ITS | Encounter Summary ---
Author Organization [facility] Address [address] [place] [address] Phone Care Team Providers Care Waistline Joiner Name Role Phone Chrissy Baker NP Primary Care Provider Carrie Gallardo Primary Care Provider [phone] Encounter Details Date Type Department Care Team (Late st Contact Info) Description 03/13/2020 Transcribe Orders Virtual Department [address] [place] [address] Chrissy Baker NP [address] [phone] Cough (Primary Dx); Nasal congestion; Runny nose Social History Tobacco Use Types Packs/Day Years [...] on file documented as of this encounter Results * COVID-19 PCR Order (03/14/2020 2:12 PM EDT) Specimen Source NASOPHARYNGEAL SWAB (FISH CULTURIST) [facility] COVID Testing Status Sent to [facility] Other 03/14/2020 2:12 PM EDT 03/14/2020 2:22 PM EDT us Chrissy Baker FISH CULTURIST BODY FLUIDS AND STOOLS ORDERA BLES Final Result [facility] [address] [place] [address] documented in this encounter Visit Diagnoses Diagnosis Cough- Primary Nasal congestion Other diseases of nasal cavity and sinuses Runny nose Other diseases of nasal cavity and sinuses documented in this encounter Additional Health Concerns Infection Onset Date Last Indicated Resolved Time CoV-Risk 03/13/2020 03/14/2020 03/27/2020 1:25 AM EDT CoV-Exposed Comment:Recent close contact 09/06/2020 09/06/2020 09/20/2020 1:25 AM EST MRSA 11/24/2022 11/24/2022 11/23/2024 1:21 AM EDT documented as of this encounter Care Teams Waistline Joiner Relationship Specialty Start Date End Date Chrissy Baker, FISH CULTURIST [address] [place] [address] PCP - General 06/25/17 12/29/21 Carrie Gallardo PA [address] [place] [address] [email or web address] PCP - General 12/30/21 documented as of this encounter Additional Source Comments The information contained in this document represents components of the legal health record. It is not the complete legal health record.[facility]
--- OUTSIDE RECORDS SUMMARY | 2025-05-11 13:39 | XMS_ITS | Encounter Summary ---
Author Organization [facility] Address [address] [place] [address] Phone Care Team Providers Care Power Plant Operators Supervisor Name Role Phone Chrissy Baker NP Primary Care Provider [phone] Carrie Gallardo Primary Care Provider [phone] Encounter Details Date Type Department Care Team (Late st Contact Info) Description 05/14/2018 Ancillary Orders [facility] [address] [place] [address] [place] [address] Jessica Ely SERVICE RIG OPERATOR [address] [place] [address] [email or web address] Breast screening Social History Tobacco Use Types Packs/Day Years Used Date Smoking Tobacco: Former Cigarettes Q uit: 2008 Smokeless Tobacco: Never Alcohol Use Standard Drinks/Week Comments No 0 (1 standard drink = 0.6 oz pur e alcohol) Comments No Sex and Gender Information Value Date Recorded Sex Assigned at Not on file Legal Sex Female 9:39 PM EDT Gender Identity Not on file Sexual Orientation Not on file documented as of this encounter Plan of Treatment Not on file documented as of this encounter Results * BI MAMMOGRAM SCREENING WITH TOMOSYNTHESIS WITH CAD (BILATERAL) (07/14/2018 2:24 PM EST) Anatomical Region Laterality Modality Breast Left, Breast Right, Breast Bilateral Bila teral Mammography 07/15/2018 8:02 AM EST Impressions 07/15/2018 8:06 AM EST No mammographic change indicative of malignancy. Routine screening is recommended. BI-RADS CATEGORY: 1 - Negative. DENSITY: There are scattered fibroglandular densities. POS - [id number] Narrative 07/15/2018 8:06 AM EST FINDINGS: Bilateral full-field digital screening mammography is obtained and read in conjunction with computer-aided detection. 3-D tomosynthesis as well as 2-D C view imaging is also performed. Comparison includes the most recent exam from 06/24/2017 and as far back as 06/28/2010. Breasts are composed of scattered fibroglandular tissue. No new suspicious mass, suspicious microcalcifications, architectural distortion, focal skin thickening, or new asymmetry is detected. Procedure Note Ilya Silveira MD - 07/15/2018 FINDINGS: Bilateral full-field digital screening mammography is obtained and read inconjunction with computer-aided detection. 3-D tomosynthesis as well as2-D C view imaging is also performed. Comparison includes the most recentexam from 06/24/2017 and as far back as 06/28/2010. Breasts are composed of scattered fibroglandular tissue. No newsuspicious mass, suspicious microcalcifications, architectural distortion,focal skin thickening, or new asymmetry is detected. IMPRESSION: No mammographic change indicative of malignancy. Routine screening isrecommended. BI-RADS CATEGORY: 1 - Negative. DENSITY: There are scattered fibroglandular densities. POS - CDHMAM2 Jessica Ely SERVICE RIG OPERATOR IMG MG EXAMS Final Result documented in this encounter Visit Diagnoses Diagnosis Breast screening Breast screening, unspecified Breast screening Breast screening, unspecified documented in this encounter Additional Health Concerns Infection Onset Date Last Indicated Resolved Time CoV-Risk 03/13/2020 03/14/2020 03/27/2020 1:25 AM EDT CoV-Exposed Comment:Recent close contact 09/06/2020 09/06/2020 09/20/2020 1:25 AM EST MRSA 11/24/2022 11/24/2022 11/23/2024 1:21 AM EDT documented as of this encounter Care Teams Power Plant Operators Supervisor Relationship Specialty Start Date End Date Viele, Chrissy R, SERVICE RIG OPERATOR [address] [place] [address] PCP - General 06/25/17 12/29/21 Carrie Gallardo PA [address] [place] [address] [email or web address] PCP - General 12/30/21 documented as of this encounter Additional Source Comments The information contained in this document represents components of the legal health record. It is not the complete legal health record.[facility]
--- OUTSIDE RECORDS SUMMARY | 2025-05-11 13:39 | XMS_ITS | Encounter Summary ---
Author Organization [facility] Address [address] [place] [address] Phone Care Team Providers Care Paramedic Name Role Phone Chrissy Baker NP Primary Care Provider Carire Gallardo Primary Care Provider [phone] Reason for Referral * MRI/CAT Scan - Closed Specialty Diagnoses / Procedures Referred By Isiah tracy Referred To Contact Radiology Diagnoses Lumbar radiculopathy Procedures MRI Lumbar Spine Swapna Zamudio NP [address] [place] [address] Phone: tel: fax: [email or web address] Referral ID Status Reason Start Date Expiration Date Visits Re quested Visits Authorized [id number] Closed 10/03/2020 04/02/2021 1 1 Encounter Details Date Type Department Care Team (Latest Contact Info) Description 10/03/2020 Transcribe Orders Virtual Department [address] [place] [address] Swapna Zamudio NP [address] [place] [phone] [email or web address] Lumbar radiculopathy (Primary Dx) Social History Tobacco Use Types Packs/Day Years [...] documented as of this encounter Results * MRI LUMBAR SPINE (NEURO) WITHOUT CONTRAST (10/09/2020 8:59 PM EST) Anatomical Region Laterality Modality L-spine Magnetic Resonan ce 10/10/2020 7:48 AM EST Narrative 10/10/2020 8:05 AM EST TECHNIQUE: MRI LUMBAR SPINE (NEURO) WITHOUT CONTRAST CLINICAL HISTORY: Pain and numbness of left lower extremity. FINDINGS: Correlation is made with lumbar spine radiographs dated 09/18/2020. There is moderate levoconvex lumbar scoliosis. The conus medullaris is normal. There are no lumbar vertebral body compression fractures. For the purposes of this dictation the lowest axial images are considerably tibia obtained through the S2 vertebral body. The S1 vertebral body is considered to be mildly partially lumbarized there is an S1-S2 intervertebral disc of moderate height without evidence of protrusion. L5-S1 level: Moderate left posterolateral intervertebral disc herniation at the left neural foramen with compression of exiting intraforaminal left L5 nerve root. Further laterally protruding disc displaces the extraforaminal nerve root. Moderately severe facet hypertrophy with moderate reactive bone marrow edema on the left side. Bilateral facet joint effusions. Left neural foramen demonstrates severe narrowing that contributes to compression of exiting left L5 nerve root. Right neural foramen demonstrates moderate narrowing with minimal encroachment upon exiting right L5 nerve root. L4-L5 level: Small broad-based posterior, left paramedian and minimally left posterolateral disc protrusion with mild impression upon the thecal sac. It extends into inferior aspect of left neural foramen and slightly further laterally. Moderate facet arthropathy with mild central canal stenosis and mild narrowing of left lateral recesses and moderate bilateral neural foraminal narrowing. At the left neural foramen protruding disc contributes to encroachment upon exiting left L4 nerve root. Further laterally, protruding disc encroaches but does not displace the extraforaminal left L4 nerve root. L3-L4 level: Moderate loss of disc height. Small broad-based posterior slightly right posterolateral disc protrusion with mild impression upon the thecal sac. Moderate facet arthropathy with mild central canal stenosis and mild narrowing of lateral recesses. Moderate right neural foraminal narrowing with encroachment upon exiting right L3 nerve root. Mild to moderate left neural foraminal narrowing. Further laterally protruding disc-osteophyte complex approaches extraforaminal right L3 nerve root-DRG. L2-L3 level: Mild L2 on L3 vertebral body retrolisthesis and moderate broad- based posterior, right paramedian-posterolateral disc protrusion with mild impression upon the thecal sac. Moderate facet arthropathy with mild central canal stenosis and mild narrowing of lateral recesses. Moderate right neural foraminal narrowing with encroachment upon exiting intraforaminal right L2 nerve root. Further laterally protruding disc displaces the extraforaminal nerve root. Mild to moderate left neural foraminal narrowing. L1-L2 level: Moderate broad-based posterior and left posterolateral disc protrusion with mild impression upon the thecal sac. Mild to moderate facet arthropathy without central canal stenosis, although with moderate left and mild right neural foraminal narrowing. Protruding disc displaces the extraforaminal left L2 nerve root. T12-L1 level: No evidence of posterior disc protrusion. CONCLUSION: Moderate levoconvex lumbar scoliosis and moderate to severe lumbar spondylosis with multilevel facet arthropathy and moderate multilevel disc protrusions- herniations. Transitional lumbosacral junction with mild partial lumbarization of S1 vertebral body. L5-S1 level: Moderate left posterolateral disc herniation with compression of exiting left L5 nerve root. Severe left neural foraminal narrowing. Moderately severe facet arthropathy with left facet reactive bone marrow edema. L4-5 level: Small posterior, left paramedian and minimally left posterolateral disc protrusion. Mild central canal stenosis, mild left lateral recess narrowing and moderate bilateral neural foraminal narrowing. There is encroachment upon exiting left L4 nerve root at the neural foramen. L3-L4 level: Small posterior and slightly right posterolateral disc protrusion. Mild central canal stenosis and narrowing of lateral recesses. Moderate right neural foraminal narrowing. L2-L3 level: Mild L2 on L3 vertebral body with retrolisthesis and moderate posterior and right paramedian-posterolateral disc protrusion. Moderate right neural foraminal narrowing. Additional findings, as described. Procedure Note Juma Dutta MD - 10/10/2020 TECHNIQUE: MRI LUMBAR SPINE (NEURO) WITHOUT CONTRAST CLINICAL HISTORY: Pain and numbness of left lower extremity. FINDINGS: Correlation is made with lumbar spine radiographs dated 09/18/2020. There is moderate levoconvex lumbar scoliosis. The conus medullaris is normal. There are no lumbar vertebral bodycompression fractures. For the purposes of this dictation the lowest axial images areconsiderably tibia obtained through the S2 vertebral body. The T7vajonvsgr body is considered to be mildly partially lumbarized there is anS1-S2 intervertebral disc of moderate height without evidence ofprotrusion. L5-S1 level: Moderate left posterolateral intervertebral disc herniationat the left neural foramen with compression of exiting intraforaminal leftL5 nerve root. Further laterally protruding disc displaces theextraforaminal nerve root. Moderately severe facet hypertrophy withmoderate reactive bone marrow edema on the left side. Bilateral facetjoint effusions. Left neural foramen demonstrates severe narrowing thatcontributes to compression of exiting left L5 nerve root. Right neuralforamen demonstrates moderate narrowing with minimal encroachment uponexiting right L5 nerve root. L4-L5 level: Small broad-based posterior, left paramedian and minimallyleft posterolateral disc protrusion with mild impression upon the thecalsac. It extends into inferior aspect of left neural foramen and slightlyfurther laterally. Moderate facet arthropathy with mild central canalstenosis and mild narrowing of left lateral recesses and moderatebilateral neural foraminal narrowing. At the left neural foramenprotruding disc contributes to encroachment upon exiting left L4 nerveroot. Further laterally, protruding disc encroaches but does not displacethe extraforaminal left L4 nerve root. L3-L4 level: Moderate loss of disc height. Small broad-based posteriorslightly right posterolateral disc protrusion with mild impression uponthe thecal sac. Moderate facet arthropathy with mild central canalstenosis and mild narrowing of lateral recesses. Moderate right neuralforaminal narrowing with encroachment upon exiting right L3 nerve root.Mild to moderate left neural foraminal narrowing. Further laterallyprotruding disc-osteophyte complex approaches extraforaminal right C0ydvvn root-DRG. L2-L3 level: Mild L2 on L3 vertebral body retrolisthesis and moderatebroad-based posterior, right paramedian-posterolateral disc protrusionwith mild impression upon the thecal sac. Moderate facet arthropathy withmild central canal stenosis and mild narrowing of lateral recesses.Moderate right neural foraminal narrowing with encroachment upon exitingintraforaminal right L2 nerve root. Further laterally protruding discdisplaces the extraforaminal nerve root. Mild to moderate left neuralforaminal narrowing. L1-L2 level: Moderate broad-based posterior and left posterolateral discprotrusion with mild impression upon the thecal sac. Mild to moderatefacet arthropathy without central canal stenosis, although with moderateleft and mild right neural foraminal narrowing. Protruding disc displacesthe extraforaminal left L2 nerve root. T12-L1 level: No evidence of posterior disc protrusion. CONCLUSION: Moderate levoconvex lumbar scoliosis and moderate to severe lumbarspondylosis with multilevel facet arthropathy and moderate multilevel discprotrusions- herniations. Transitional lumbosacral junction with mild partial lumbarization of S5pdarkcxsb body. L5-S1 level: Moderate left posterolateral disc herniation with compressionof exiting left L5 nerve root. Severe left neural foraminal narrowing.Moderately severe facet arthropathy with left facet reactive bone marrowedema. L4-5 level: Small posterior, left paramedian and minimally leftposterolateral disc protrusion. Mild central canal stenosis, mild leftlateral recess narrowing and moderate bilateral neural foraminalnarrowing. There is encroachment upon exiting left L4 nerve root at theneural foramen. L3-L4 level: Small posterior and slightly right posterolateral discprotrusion. Mild central canal stenosis and narrowing of lateral recesses.Moderate right neural foraminal narrowing. L2-L3 level: Mild L2 on L3 vertebral body with retrolisthesis and moderateposterior and right paramedian-posterolateral disc protrusion. Moderateright neural foraminal narrowing. Additional findings, as described. Swapna Zamudio NP IMG MR XSPECIALTY Final Result documented in this encounter Visit Diagnoses Diagnosis Lumbar radiculopathy- Primary Thoracic or lumbosacral neuritis or radiculitis, unspecified Lumbar radiculopathy Thoracic or lumbosacral neuritis or radiculitis, unspecified documented in this encounter Additional Health Concerns Infection Onset Date Last Indicated Resolved Time MRSA 11/24/2022 11/24/2022 11/23/2024 1:21 AM EDT documented as of this encounter Care Teams Paramedic Relationship Specialty Start Date End Date Chrissy Baker NP [address] [place] [address] PCP - General 06/25/17 12/29/21 Carrie Gallardo PA [address] [place] [address] [email or web address] PCP - General 12/30/21 documented as of this encounter Additional Source Comments The information contained in this document represents components of the legal health record. It is not the complete legal health record.[facility]
--- OUTSIDE RECORDS SUMMARY | 2025-05-11 13:39 | XMS_ITS | Encounter Summary ---
Author Organization [facility] Address [address] [place] [address] Phone Care Team Providers Care Manager Relocation Name Role Phone Chrissy Baker NP Primary Care Provider [phone] Carrie Gallardo Primary Care Provider [phone] Encounter Details Date Type Department Care Team (Latest Contact Info) Description 09/13/2020 Ancillary Orders Virtual Department [address] [place] [address] Swapna Zamudio NP [address] [place] [phone] [email or web address] Primary osteoarthritis of both first carpometacarpal joints; Lumbar spondylosis Social History Tobacco Use Types Packs/Day Years Used Date Smoking Tobacco: Former Cigarettes Q uit: 2008 Smokeless Tobacco: Never Alcohol Use Standard Drinks/Week Comments No 0 (1 standard drink = 0.6 oz pur e alcohol) 2005 quit Comments No Sex and Gender Information Value Date Recorded Sex Assigned at Not on file Legal Sex Female 9:39 PM EDT Gender Identity Not on file Sexual Orientation Not on file documented as of this encounter Plan of Treatment Not on file documented as of this encounter Results * XR HAND 3 OR MORE VIEWS (RIGHT) (09/18/2020 3:28 PM EST) Anatomical Region Laterality Modality Hand Right Computed Radiogr aphy 09/18/2020 3:38 PM EST Impressions 09/18/2020 3:39 PM EST No evidence of arthritis. Narrative 09/18/2020 3:39 PM EST HISTORY: As above. COMPARISON: None. RIGHT HAND RADIOGRAPH FINDINGS: 3 images obtained. No fracture or malalignment. Joint spaces are preserved. No destructive or suspicious bone lesions. No erosions. No soft tissue swelling. Procedure Note Uri Lee MD - 09/18/2020 HISTORY: As above. COMPARISON: None. RIGHT HAND RADIOGRAPH FINDINGS: 3 images obtained. No fracture or malalignment. Joint spaces are preserved. No destructive orsuspicious bone lesions. No erosions. No soft tissue swelling. IMPRESSION: No evidence of arthritis. us Swapna Zamudio WINDOW DRAPER IMG XR UPPER EXTREMITY Final Res ult * XR LUMBOSACRAL SPINE 4 OR MORE VIEWS (09/18/2020 3:26 PM EST) Anatomical Region Laterality Modality L-spine Computed Radiogr aphy 09/18/2020 3:39 PM EST Impressions 09/18/2020 3:42 PM EST Moderate scoliosis, multilevel disc disease and facet arthropathy as above. Narrative 09/18/2020 3:42 PM EST HISTORY: As above. COMPARISON: None. LUMBAR SPINE RADIOGRAPH FINDINGS: 6 images obtained. Osteopenia. Moderate mid lumbar levoscoliosis. S1 transitional vertebra. Severe L2-3 and moderate L1-2 disc space narrowing with endplate sclerosis and osteophytes. Mild L5-S1 disc space narrowing. Moderate L5-S1 facet arthropathy. No spondylolysis. No compression fractures. No destructive or suspicious bone lesions. Soft tissues are unremarkable. Procedure Note Uri Lee MD - 09/18/2020 HISTORY: As above. COMPARISON: None. LUMBAR SPINE RADIOGRAPH FINDINGS: 6 images obtained. Osteopenia. Moderate mid lumbar levoscoliosis. S1 transitional vertebra.Severe L2-3 and moderate L1-2 disc space narrowing with endplate sclerosisand osteophytes. Mild L5-S1 disc space narrowing. Moderate L5-S1 facetarthropathy. No spondylolysis. No compression fractures. No destructive orsuspicious bone lesions. Soft tissues are unremarkable. IMPRESSION: Moderate scoliosis, multilevel disc disease and facet arthropathy asabove. Swapna Zamudio WINDOW DRAPER IMG XR SPINE Final Result documented in this encounter Visit Diagnoses Diagnosis Primary osteoarthritis of both first carpometacarpal joints Lumbar spondylosis Lumbosacral spondylosis without myelopathy Lumbar spondylosis Lumbosacral spondylosis without myelopathy Primary osteoarthritis of both first carpometacarpal joints documented in this encounter Additional Health Concerns Infection Onset Date Last Indicated Resolved Time CoV-Exposed Comment:Recent close contact 09/06/2020 09/06/2020 09/20/2020 1:25 AM EST MRSA 11/24/2022 11/24/2022 11/23/2024 1:21 AM EDT documented as of this encounter Care Teams Manager Relocation Relationship Specialty Start Date End Date Chrissy Baker NP [address] [place] [address] PCP - General 06/25/17 12/29/21 Carrie Gallardo PA [address] [place] [address] [email or web address] PCP - General 12/30/21 documented as of this encounter Additional Source Comments The information contained in this document represents components of the legal health record. It is not the complete legal health record.[facility]
--- OUTSIDE RECORDS SUMMARY | 2025-05-11 13:39 | XMS_ITS | Patient Health Record ---
Author Organization [facility] Address [address] [place] [address] Care Team Providers Care Credit Associate Name Role Phone Carrie Willams Primary Care Provider Un available Black, Angelita Unavailable [phone] Allergies Allergen (clinical drug ingredient) Drug/Non Drug Allergy documented on EMR Reaction Allergy Type Onset Date Status erythromycin Erythromycin Unknown Drug Allergy A ctive Reason For Referral No Information Medications Medication SIG (Take, Route, Frequency, Duration) Notes Start Date End Date Status Terbinafine HCl 250 MG 1 tablet Orally O nce a day for 7 days days then stop for 3 weeks repeat cycle; Duration: 90 days 12/08/2024 Active Cephalexin 500 MG 1 capsule Orally twice a day; Duration: 10 days 11/24/2024 Not-Taking Terbinafine HCl 250 MG 1 tablet Orally O nce a day for 7 days days then stop for 3 weeks repeat cycle; Duration: 90 days 02/15/2024 Active Omeprazole 20 MG 1 capsule 30 minutes before morning meal Orally Once a day Active Pramipexole Dihydrochloride Active Gabapentin Active Multi Vitamin Active Diclofenac Sodium Ac tive Immunizations Vaccine Route Administration Date Status Comme nts Influenza Unknown 05/08/2024 Administered Social History Tobacco Use: Social History Observation Description Date Details (start date - stop date) Never Smoker NA - NA Alcohol Screen Question Answer Notes Did you have a drink containing alcohol in the p ast year? No Points 0 Interpretation Negative Tobacco use other than smoking: Question Answer Notes Are you an other tobacco user? No V ape Tobacco Control (Standard) Question Answer Notes Tobacco use: Nonsmoker Additional Findings: Tobacco non-user Ex-cigaret te smoker AUDIT-C (Standard) Question Answer Notes Did you have a drink containing alcohol in the p ast year? No Points 0 Interpretation Negative Problems Problem Type SNOMED Code ICD Code Onset Dates Problem Status W/U Status Risk Notes Problem Tinea unguium (170662632) Tinea unguium (B35.1) Active confirmed Vital Signs Blood pressure diastolic 80 mm Hg 03/23/2025 Height 5ft3in in 03/23/2025 Blood pressure systolic 122 mm Hg 03/23/2025 Weight 120 lbs 03/23/2025 BMI 21.25 kg/m2 03/23/2025 Procedures Procedure Date Ordered Date Performed Result Body Sit e 32488-FRLIYXA NAIL, 6 OR MORE 05/19/2024 N/A 93595-Jebf Destruction, 1-14 05/19/2024 N/A 56838-Gavu. Subungual Hematoma 05/19/2024 N/A 12393 - Punch Biopsy of Skin Lesion 11/24/2024 N/A Encounters Encounter Location Date Provider Diagnosis [address] [address] 05/19/2024 Angelita Black Tinea unguium B35.1 ; Pain in right toe(s) M79.674 ; Pain in left toe(s) M79.675 ; Right foot pain M79.671 ; Subungual abscess of toe of right foot L03.031 and Plantar wart B07.[address] [address] 08/18/2024 Angelita Black Tinea unguium B35.1 ; Pain in right toe(s) M79.674 ; Pain in left toe(s) M79.675 ; Right foot pain M79.671 and Plantar wart B07.[address] [address] 11/24/2024 Angelita Black Disorder of the skin and subcutaneous tissue, unspecified L98.[address] [address] 12/08/2024 Angelita Black Tinea unguium B35.1 ; Plantar wart B07.0 ; Pain in right toe(s) M79.674 ; Pain in left toe(s) M79.675 ; Right foot pain M79.671 and Ulcer of right foot, limited to breakdown of skin L97.[address] [address] 03/23/2025 Angelita Black Tinea unguium B35.1 ; Pain in right toe(s) M79.674 and Pain in left toe(s) M79.[address] [address] 10/13/2024 Angelita Black [address] [address] 11/21/2024 Angelita Black [address] [address] 11/24/2024 Angelita Black [address] [address] 03/13/2025 Angelita Black Assessments Encounter Date Diagnosis (ICD Code) Assessment Notes Treatment Notes Treatment Clinical Notes Section Notes 05/19/2024 Tinea unguium (ICD-10 - B35.1) 08/18/2024 Tinea unguium (ICD-10 - B35.1) 11/24/2024 Disorder of the skin and subcutaneous tissue, unspecified (ICD-10 - L98.9) 12/08/2024 Plantar wart (ICD-10 - B07.0) 12/08/2024 Tinea unguium (ICD-10 - B35.1) 03/23/2025 Tinea unguium (ICD-10 - B35.1) EBM Medical prescription ordered and faxed 03/23/2025 Pain in right toe(s) (ICD-10 - M79.674) 08/18/2024 Pain in right toe(s) (ICD-10 - M79.674) 12/08/2024 Pain in right toe(s) (ICD-10 - M79.674) 05/19/2024 Pain in right toe(s) (ICD-10 - M79.674) 03/23/2025 Pain in left toe(s) (ICD-10 - M79.675) 12/08/2024 Pain in left toe(s) (ICD-10 - M79.675) 08/18/2024 Pain in left toe(s) (ICD-10 - M79.675) 05/19/2024 Pain in left toe(s) (ICD-10 - M79.675) 12/08/2024 Right foot pain (ICD-10 - M79.671) 08/18/2024 Right foot pain (ICD-10 - M79.671) 05/19/2024 Right foot pain (ICD-10 - M79.671) 05/19/2024 Subungual abscess of toe of right foot (ICD-10 - L03.031) 12/08/2024 Ulcer of right foot, limited to breakdown of skin (ICD-10 - L97.511) 08/18/2024 Plantar wart (ICD-10 - B07.0) 05/19/2024 Plantar wart (ICD-10 - B07.0) Plan Of Treatment Pending Test Test Name Order Date *Liver Function Test (LFT) 02/04/2024 *Liver Function Test (LFT) 08/18/2024 [id number] NAIL, 6 OR MORE 05/19/2024 01275-Kfgd Destruction, 1-14 05/19/2024 24607-Rjkn. Subungual Hematoma 4 08310-Opsg. Subungual Hematoma 4 73278 - Punch Biopsy of Skin Lesion 11/06 Next Appt Details Provider Name:Angelita Leahc , 07/24/2025 04:00:00 PM, [address] [facility], [place], [address], Insurance Providers Payer Name Payer Address Payer Phone Subscriber Number Group Number Insured Name Patient Relationship to Insured Coverage Start Date Coverage End Date [facility] [address] [place] [address] [id number] Kimmie Zaidi Self - patient is the insured Medical (General) History Medical History History ICD Code Anxiety Arthritis covid-19 Chicken pox Surgical History Surgery Date(Month/Year) splenectomy 1973 tonsillectomy 1974 carpal tunnel surgery 06/2023/ 07/2023
--- OUTSIDE RECORDS SUMMARY | 2025-05-11 13:39 | XMS_ITS | Encounter Summary ---
Author Organization [facility] Address [address] [place] [address] Phone Care Team Providers Care [employer] Lens Centerer And Edger Name Role Phone Chrissy Baker NP Primary Care Provider [phone] Carrie Gallardo Primary Care Provider [phone] Encounter Details Date Type Department Care Team (Late st Contact Info) Description 07/22/2019 Ancillary Orders Virtual Department [address] [place] [address] Chrissy Baker NP [address] [place] [address] [phone] Breast screening Social History Tobacco Use Types [...] MAMMOGRAM SCREENING WITH TOMOSYNTHESIS WITH CAD (BILATERAL) (08/03/2019 12:08 PM EST) Anatomical Region Laterality Modality Breast Left, Breast Right, Breast Bilateral Bila teral Mammography 08/03/2019 12:5 0 PM EST Impressions 08/03/2019 12:51 PM EST No mammographic evidence of malignancy. Recommend routine annual surveillance. BI-RADS CATEGORY: 1 - Negative. DENSITY: There are scattered fibroglandular densities. POS - [id number] Narrative 08/03/2019 12:51 PM EST 54-year-old female with no current breast symptoms. Comparison made to previous on 07/14/2018 and as far back as 07/22/2012. Interpretation made in conjunction with computer-aided detection and tomosynthesis. There are scattered areas of fibroglandular density. There are no suspicious masses, areas of architectural distortion, or suspicious clusters of microcalcifications. Procedure Note Jessenia Quinteros MD - 08/03/2019 54-year-old female with no current breast symptoms. Comparison made toprevious on 07/14/2018 and as far back as 07/22/2012. Interpretation madein conjunction with computer-aided detection and tomosynthesis. There are scattered areas of fibroglandular density. There are no suspicious masses, areas of architectural distortion, orsuspicious clusters of microcalcifications. IMPRESSION: No mammographic evidence of malignancy. Recommend routine annualsurveillance. BI-RADS CATEGORY: 1 - Negative. DENSITY: There are scattered fibroglandular densities. POS - [id number] Chrissy Baker NP IMG MG EXAMS Final Result documented in [...] documented as of this encounter Care Teams [employer] Relationship Specialty Start Date End Date Chrissy Baker NP [address] [place] [address] PCP - General 06/25/17 12/29/21 Carrie Gallardo PA [address] [place] [id number] [email or web address] PCP - General 12/30/21 documented as of this encounter Additional Source Comments The information contained in this document represents components of the legal health record. It is not the complete legal health record.[facility]
--- OUTSIDE RECORDS SUMMARY | 2025-05-11 13:39 | XMS_ITS | Clinical Summary ---
Author Organization [facility] Address [address] [place] [address] Phone Care Team Providers Care Publications Designer Name Role Phone Carrie Gallardo Primary Care Provider [phone] Allergies Active Allergy Reactions Criticality Noted Date Comments Clarithromycin Unknown 02/01/2022 Medications multivitamins capsule Active dextroamphetami ne-amphetamine (ADDERALL) 15 mg Tab tablet TAKE 1/2 TAB BY MOUTH 3 TIMES A DAY 0 8 Active omeprazole (PRILOSEC) 20 MG capsule Take by mouth daily. 3 8 Active cloNIDine HCL (CATAPRES) 0.2 MG tablet 0 Active diclofenac sodium (VOLTAREN) 75 MG EC tablet TAKE 1 TABLET BY MOUTH TWICE A DAY WITH MEALS FOR 30 DAYS 1 Active gabapentin (NEURONTIN) 100 MG capsule TAKE ONE CAP IN THE MORNING AND 2 CAPS IN THE AFTERNOON 1 Active gabapentin (NEURONTIN) 300 MG capsule Take 300 mg by mouth every evening. 1 Active fluticasone propionate (FLONASE) 50 mcg/actuation nasal spray SPRAY 2 SPRAYS INTO EACH NOSTRIL EVERY DAY 1 Active pramipexole (MIRAPEX) 0.25 MG tablet 1 Active busPIRone (BUSPAR) 5 MG tablet Take 5 mg by mouth every evening. 2 Active ISOtretinoin (ACCUTANE) 40 MG capsule Take 40 mg by mouth daily. Active QUEtiapine (SEROQUEL) 25 MG tablet Take 25 mg by mouth nightly at bedtime. Active Hospital, Clinic, or Other Facility Administered Medication Ordered Dose Route Frequency Start Date End Date Status BUPivacaine HCl (MARCAINE) 0.25% injection 2 mL 2 mL See Adm Inst Once 04/24/2025 07/23/2025 Active triamcinolone acetonide (KENALOG-40) 40 mg/mL injection 80 mg 80 mg See Adm Inst Once 04/24/2025 07/23/2025 Active lidocaine (XYLOCAINE) 1% injection 2 mL 2 mL See Adm Inst Once 04/24/2025 07/23/2025 Active Active Problems Problem Noted Date Diagnosed Date Menopausal vaginal dryness 11/12/2021 Assessment & Plan (11/12/2021 5:35 PM EST): We reviewed treatment/relief measures for vaginal dryness, including little/no soap, unscented products only, coconut oil/lube, and vaginal estrogen. She would like to start Yuvafem. Usage reviewed and first month rx sent for nightly use X 2 weeks, then twice a week. She will check with insurance re: one vs. Three month rx coverage and call for twice weekly maintenance refills. Trigger thumb, right thumb Resolved Problems Problem Noted Date Diagnosed Date Resolved Date Encounter for preoperative s creening laboratory testing for COVID-19 virus Encounters Date Type Department Care Team Description 04/24/2025 8:46 AM EDT - 04/24/2025 11:59 PM EDT Hospital Encounter [address] [address] Shelbie Bella MD Discharge Disposition: Home or Self Care 04/24/2025 8:30 AM EDT Office Visit [facility] [address] [place] [id number] Shelbie Bella MD Left shoulder tendonitis (Primary Dx); Left shoulder pain 02/26/2025 4:00 PM EDT Office Visit [facility] at [address] [address] Chelsea Coyne, EMILIA Couch Cristina Moeller, CHARGER OPERATOR Impetigo (Primary Dx) from Last 3 Months Immunizations Immunization Administration Dates Next Due Hib,PRP-T 12/29/2019 INFLUENZA, SPLIT VIRUS, TRIV ALENT W/ PRESERVATIVE IM 06/04/2011,05/29/2010,05/24/2009 Influenza Quadrivalent MDCK Preservative Free IM 06/18/2019 Influenza Quadrivalent Prese rvative Free IM 06/04/2021,05/21/2020,06/03/2018,06/13,06/30/2016,06/20/2015,06/26/2014 Influenza Quadrivalent w/ Pr eservative IM 07/02/2020 Influenza trivalent preserva tive free intradermal 05/27/2012 Influenza, Unspecified Formulation 06/12/2008, Meningococcal MCV4P 12/29/2019,11/03/2019 Pneumococcal conjugate PCV13 11/03/2019 Pneumococcal conjugate, PCV 7 07/29/2004 Pneumococcal polysaccharide PPSV23 12/29/2019, Td, unspecified formulation 06/28/2007 Tdap 07/15/2017 Zoster recombinant 06/03/2018,02/17/2018 Family History Medical History Relation Comments Cardiovascular disease Father Cardiovascular disease Mother Stroke Mother Multiple sclerosis Sister Relation Status Comments Father Mother Sister Social History Tobacco Use Types Packs/Day Years Used Date Smoking Tobacco: Former Cigarettes 0.5 15 1 993 - 2008 Smokeless Tobacco: Never Tobacco Cessation:Counseling Given: Not Answered Alcohol Use Standard Drinks/Week Comments No 0 (1 standard drink = 0.6 oz pur e alcohol) 2004 quit Education Answer Date Recorded Are you interested in more education? Not on radha e 01/02/2023 Are you concerned about learning? Not on file 01/02/2023 No 01/02/2023 No 01/02/2023 Digital Access Answer Date Recorded No 01/31/2023 No 01/31/2023 Reliable internet access at home? Not on file 01/31/2023 Device with a working camera? Not on file Comments No Sex and Gender Information Value Date Recorded Sex Assigned at Not on file Legal Sex Female 9:39 PM EDT Gender Identity Not on file Sexual Orientation Not on file Last Filed Vital Signs Vital Sign Reading Time Taken Comments Blood Pressure 114/69 02/26/2025 4:02 PM EDT Pulse 65 02/26/2025 4:02 PM EDT Temperature 36.8 C (98.2 F) 02/26/2025 4:02 PM EDT Respiratory Rate 18 02/26/2025 4:02 PM EDT Oxygen Saturation 98% 02/26/2025 4:02 PM EDT Inhaled Oxygen Concentration - - Weight 68.5 kg (151 lb) 12/19/2022 10:48 AM EDT Height 157.5 cm (5' 2.01 ) 12/19/2022 10:48 AM E DT Body Mass Index 27.61 12/19/2022 10:48 AM EDT Plan of Treatment Health Maintenance Due Date Last Done Comments LIPID PANEL 1965 DEPRESSION SCREENING 1979 HEPATITIS C SCREENING 1985 HIV ONE-TIME SCREENING (18-65 YEARS) 1985 COLOGUARD 2012 FIT TEST 2012 FOBT 2012 SIGMOIDOSCOPY 2012 VIRTUAL COLONOSCOPY 2012 SCREENING FOR DIABETES 10/25/2021 10/25/2018 MAMMOGRAM 07/31/2023 07/31/2021, 07/09, 07/14/2018 PAP SMEAR 11/12/2024 11/12/2021, 08/28/2016 INFLUENZA VACCINE (#1) 2025 , 05/29/2023, 06/21/2022, Additional history exists Adult Td,Tdap Booster 07/15/2027 07/15/2017, 007 COLONOSCOPY 10/28/2028 10/28/2018 COLORECTAL CANCER SCREENING 10/28/2028 ZOSTER VACCINES Completed 06/03/2018, 02/17/2018 HIB VACCINES Aged Out 12/29/2019 No longer eligi ble based on patient's age to complete this topic MENINGOCOCCAL VACCINES (ACWY) Aged Out 12/29/2019, 11/03/2019 No longer eligibl e based on patient's age to complete this topic PNEUMOCOCCAL VACCINES (50+ years) Completed 06/05/2023, 12/29/2019, 11/03/2019, Additional history exists COVID-19 VACCINE Completed 05/10/2024, , 06/05/2023, Additional history exists SMOKING STATUS SCREENING (Once After 26 Yrs) Completed 04/24/2025 HEPATITIS A VACCINES Aged Out No long er eligible based on patient's age to complete this topic MENINGOCOCCAL VACCINES (B) Aged Out N o longer eligible based on patient's age to complete this topic Medical Devices Not on file Procedures Procedure Name Priority Date/Time Associated Diagnosis Comments XR SHOULDER 2 VIEWS (LEFT) Routine 04/24/2025 8:56 AM EDT Left shoulder pain PAP TEST Routine 11/12/2021 12:00 AM EST BI MAMMOGRAM SCREENING WITH TOMOSYNTHESIS WITH CAD (BILATERAL) Routine 07/31/2021 2:58 PM EST Breast screening ENDOSCOPY, COLON 10/28/2018 11:3 6 AM EST from Last 3 Months or Most Recently Relevant to Health Maintenance Results * XR SHOULDER 2 VIEWS (LEFT) (04/24/2025 8:56 AM EDT) Narrative SYSTEMGENERATED, DOCUMENTATION - 04/24/2025 8:56 AM EDT This image report has been auto-finalized and has not been read by a Radiologist. Interpretation has been included in the provider encounter note for this date of service. us Shelbie Bella MD IMG XR UPPER EXTREMITY Fi nal Result * Pap Smear (11/12/2021 12:00 AM EST) 11/12/2021 11/13/2021 8:3 4 AM EST Narrative SEE NARRATIVE - 11/18/2021 2:32 PM EDT [address] [address] Briquette Maker: Kimmie Koch MD PATIENT REGISTRATION REP Cytology Report FINAL DIAGNOSIS A. PAP SMEAR (SUREPATH) CE: SPECIMEN ADEQUACY: Satisfactory for evaluation; transformation zone present. INTERPRETATION: NEGATIVE FOR INTRAEPITHELIAL LESION OR MALIGNANCY. Electronically Signed Out By: DELBERT Mckinney(ASCP) The Pap test is a screening test primarily for squamous cancers and precursors and has associated false-negative and false-positive results. New technologies such as liquid-based preparations may decrease but will not eliminate all false-negative results. Regular sampling and follow-up of unexplained clinical signs and symptoms are recommended to minimize false negative results. PROCEDURES/ADDENDA HPV Testing (Requested) Ordered Date: 11/13/2021 A. PAP SMEAR (SUREPATH) CE: Human Papilloma Virus Test Negative for high-risk human papillomavirus types 16, 18, 45 and the Other high risk probe set (Includes 31, 33, 35, 39, 51, 52, 56, 58, 59, 66, 68) by [employer] HR-HPV analysis. Clinical correlation is advised. This HPV test was performed at [facility], [address] [place] [address]. This test has been FDA approved for SurePath cervical cytology specimens. The accuracy and precision of this test for all other specimen sources has been verified in the Cytopathology Laboratory of the [facility] and has not been cleared or approved by the U.S. Food and Drug Administration. Clinical correlation is advised. CLINICAL HISTORY Date of Last Menstrual Period: Not Provided Menstrual History: Post Menopausal Other Clinical Conditions: Screening Pap SPECIMEN SOURCE A: PAP SMEAR (SUREPATH) CE Patient Name: KIMMIE BANUELOS : 1965 (Age: 56) Sex: F Institution: [facility] Location: [facility] Date of Collection: 11/12/2021 Date of Reported: 11/15/2021 10:59 Results to: Jessica Ely MSN, BS us Jessica Ely COST CONTROL SPECIALIST CYTOLOGY ORDERABLES Edited Res ult - Final SEE NARRATIVE * BI MAMMOGRAM SCREENING WITH TOMOSYNTHESIS WITH CAD (BILATERAL) (07/31/2021 2:58 PM EST) Anatomical Region Laterality Modality Breast Left, Breast Right, Breast Bilateral Bila teral Mammography 07/31/2021 3:06 PM EST Impressions 07/31/2021 3:08 PM EST No mammographic change indicative of malignancy. Annual screening is recommended. BI-RADS CATEGORY: 1 - Negative. DENSITY: There are scattered fibroglandular densities. Narrative 07/31/2021 3:08 PM EST Bilateral full-field digital screening mammography is obtained and read in conjunction with computer-aided detection. Tomosynthesis as well as 2-D C view imaging of both breasts in two planes also obtained. Comparison made to multiple prior, most recent August 03, 2019, and most remote March 20, 2014. No dominant mass, architectural distortion, worrisome asymmetry, or suspicious calcification is identified. No skin or nipple finding of concern is appreciated. Procedure Note Edison Bello MD - 07/31/2021 Bilateral full-field digital screening mammography is obtained and read inconjunction with computer-aided detection. Tomosynthesis as well as 2-D Cview imaging of both breasts in two planes also obtained. Comparison madeto multiple prior, most recent August 03, 2019, and most remote March. No dominant mass, architectural distortion, worrisome asymmetry, orsuspicious calcification is identified. No skin or nipple finding ofconcern is appreciated. IMPRESSION: No mammographic change indicative of malignancy. Annual screening isrecommended. BI-RADS CATEGORY: 1 - Negative. DENSITY: There are scattered fibroglandular densities. Chrissy Baker COST CONTROL SPECIALIST IMG MG EXAMS Final Result * ENDOSCOPY, COLON (10/28/2018 11:36 AM EST) Narrative Transcriptions Luis Gao MD - 10/28/2018 11:36 AM EST Patient Name: Kimmie Frederickkymdiallo Attending MD:: LUIS GAO MD, Procedure Date: 10/28/2018 11:36 AM Date of : 1965 Age: 53 Admit Type: Outpatient Gender: Female Room: [place] [address] Referring MD: EFRAIN ELIZABETH Exam Type: Colonoscopy Indications: Heme positive stool, Change in bowel habits Medications: Monitored Anesthesia Care Procedure: Informed consent was obtained from the patient after discussion of the indications, limitations,alternatives, benefits, and risks of the procedure. Risksspecifically discussed include but are not limited to medication reactions, missed lesions, bleeding, perforation, orthe need for emergent surgery. Throughout the procedure, the patient's blood pressure, pulse, end-tidal CO2, and oxygen saturations were monitored continuously. The Olympus pediatric variable colonoscope [id number]-[id number] was introduced through the anus and advanced to thececum, identified by appendiceal orifice and ileocecal valve.The colonoscopy was performed without difficulty. Thepatient tolerated the procedure well. The quality of the bowel preparation was evaluated using the BBPS (Bazine Bowel Preparation Scale) with scores of: Right Colon = 3, Transverse Colon = 3 and Left Colon = 3 (entire mucosa seen well with no residual staining, small fragments of stool or opaque liquid). The total BBPS score equals9. Complications: No immediate complications. Estimated blood loss:None. Findings: The perianal and digital rectal examinations werenormal. Internal hemorrhoids were found during retroflexion.The hemorrhoids were mild. The exam was otherwise normal throughout the examined colon. Impression: - Internal hemorrhoids. - No specimens collected. Recommendation: - Discharge patient to home. - Repeat colonoscopy in 10 years for screeningpurposes. LUIS GAO MD, 10/28/2018 12:14:01 PM This report has been signed electronically. Number of Addenda: 0 Note Initiated On: 10/28/2018 11:36 AM Procedure Code(s): --- Professional --- 14705, Colonoscopy, flexible; diagnostic, including collection of specimen(s) by brushing or washing, when performed (separateprocedure) --- Technical --- 01078, Colonoscopy, flexible; diagnostic, including collection of specimen(s) by brushing or washing, when performed (separateprocedure) Diagnosis Code(s): --- Professional --- R19.4, Change in bowel habit R19.5, Other fecal abnormalities K64.8, Other hemorrhoids --- Technical --- R19.4, Change in bowel habit R19.5, Other fecal abnormalities K64.8, Other hemorrhoids CPT copyright 2016 [employer]. All rights reserved. The codes documented in this report are preliminary and upon stone derrickman and rigger reviewmay be revised to meet current compliance requirements. [address] [place] [id number] Chrissy Baker NP GI PROCEDURE ORDERABLES Final Result from Last 3 Months or Most Recently Relevant to Health Maintenance Insurance O O O O O O O [facility] HMO Care Teams Publications Designer Relationship Specialty Start Date End Date Carrie Gallardo PA [address] [place] [id number] [email or web address] PCP - General 12/30/21 Additional Source Comments The information contained in this document represents components of the legal health record. It is not the complete legal health record.[facility]
--- OUTSIDE RECORDS SUMMARY | 2025-05-11 13:39 | XMS_ITS | Encounter Summary ---
Author Organization [facility] Address [address] [facility] [address] [place] [address] Phone Care Team Providers Care Governor Assembler Name Role Phone Carrie Gallardo Primary Care Provider [phone] Encounter Details Date Type Department Care Team (Late st Contact Info) Description 12/19/2022 Procedure Pass [place] Admitting Dept - Virtual Department [address] [place] [address] Social History Tobacco Use Types Packs/Day Years Used Date Smoking Tobacco: Former Cigarettes 0.5 15 1 993 - 2008 Smokeless Tobacco: Never Alcohol Use Standard [...] documented as of this encounter Care Teams Governor Assembler Relationship Specialty Start Date End Date Carrie Gallardo PA [address] [place] [address] [email or web address] PCP - General 12/30/21 documented as of this encounter Additional Source Comments The information contained in this document represents components of the legal health record. It is not the complete legal health record.[facility]
--- OUTSIDE RECORDS SUMMARY | 2025-05-11 13:39 | XMS_ITS | Encounter Summary ---
Author Organization [facility] Address [address] [place] [address] Phone Care Team Providers Care Riveting Machine Operator Name Role Phone Chrissy Baker NP Primary Care Provider [phone] Carrie Gallardo Primary Care Provider [phone] Encounter Details Date Type Department Care Team (Late st Contact Info) Description 09/06/2020 Transcribe Orders Virtual Department [address] [place] [address] Chrissy Baker NP [address] [place] [address] [phone] Exposure to SARS virus (Primary Dx) Social History Tobacco Use Types [...] this encounter Results * COVID-19 PCR Order (09/08/2020 8:00 AM EST) COVID Testing Status Specimen received in analyzing lab. [facility] Symptomatic? NO [facility] Other 09/08/2020 8:00 AM EST 09/08/2020 10:53 AM EST Chrissy Baker FITNESS CLUB MANAGER BODY FLUIDS AND STOOLS ORDERA BLES Final Result [facility] [address] [place] [address] [facility] [address] [place] [phone] documented in this encounter Visit Diagnoses Diagnosis Exposure to SARS virus- Primary Exposure to SARS-associated coronavirus documented in this encounter Additional Health Concerns Infection Onset Date Last Indicated Resolved Time CoV-Exposed Comment:Recent close contact 09/06/2020 09/06/2020 09/20/2020 1:25 AM EST MRSA 11/24/2022 11/24/2022 11/23/2024 1:21 AM EDT documented as of this encounter Care Teams Riveting Machine Operator Relationship Specialty Start Date End Date Chrissy Baker, FITNESS CLUB MANAGER [address] [place] [address] PCP - General 06/25/17 12/29/21 Carrie Gallardo PA [address] [place] [address] [email or web address] PCP - General 12/30/21 documented as of this encounter Additional Source Comments The information contained in this document represents components of the legal health record. It is not the complete legal health record.[facility]
--- OUTSIDE RECORDS SUMMARY | 2025-05-11 13:39 | XMS_ITS | Encounter Summary ---
Author Organization [facility] Address [address] [facility] [address] [place] [address] Phone Care Team Providers Care Injection Molding Engineer Name Role Phone Carrie Gallardo Primary Care Provider [phone] Encounter Details Date Type Department Care Team ([facility] st Contact Info) Description 12/01/2022 Prep for Surgery [facility] Medicine [address] [place] [address] Anabella Tony MD [address] [place] [address] Orthopedics & Sports Medicine, [facility] [place] [address] [email or web address] Social History Tobacco Use Types Packs/Day Years [...] documented as of this encounter Care Teams Injection Molding Engineer Relationship Specialty Start Date End Date Carrie Gallardo PA [address] [place] [id number] [email or web address] PCP - General 12/30/21 documented as of this encounter Additional Source Comments The information contained in this document represents components of the legal health record. It is not the complete legal health record.[facility]
--- OUTSIDE RECORDS SUMMARY | 2025-05-11 13:39 | XMS_ITS | Encounter Summary ---
Author Organization [facility] Address [address] [facility] [address] [place] [address] Phone Care Team Providers Care Bending Roll Operator Name Role Phone Chrissy Baker NP Primary Care Provider [phone] Carrie Gallardo Primary Care Provider [phone] Encounter Details Date Type Department Care Team (Latest Contact Info) Description 11/17/2018 Transcribe Orders [facility] [address] [place] [address] Raiza Carty PA-C [address] [place] [address] Anemia, unspecified type (Primary Dx) Social History Tobacco Use Types [...] documented as of this encounter Results * Vitamin B12 (11/17/2018 2:19 PM EDT) VITAMIN B12 664 232 - 1,245 pg/mL [facility] Blood 11/17/2018 2:19 PM EDT 11/17/2018 2:25 PM EDT us Raiza Carty PA-C LAB BLOOD ORDERABLES Final Resu lt [address] [address] * Ferritin (11/17/2018 2:19 PM EDT) FERRITIN 45 13 - 150 ug/L [facility] Blood 11/17/2018 2:19 PM EDT 11/17/2018 2:25 PM EDT us Raiza Carty PA-C LAB BLOOD ORDERABLES Final Resu lt Performing Organization Address [facility] Co de Phone Number [address] [address] * (ABNORMAL) CBC (11/17/2018 2:19 PM EDT) WBC 4.32 3.40 - 11.20 K/uL [facility] RBC 3.60(L) 3.80 - 4.80 M/uL [facility] HGB 11.4(L) 12.0 - 15.0 g/dL [facility] HCT 34.3(L) 36.0 - 46.0 % [facility] PLT 379 130 - 400 K/uL [facility] MCV 95.3 79.0 - 98.0 fL [facility] MCH 31.7 27.0 - 34.8 pg [facility] MCHC 33.2 31.5 - 36.0 g/dL [facility] RDW 12.7 10.8 - 14.6 % [facility] MPV 10.2 9.4 - 12.4 fl [facility] NRBC 0.00 0.00 /100 WBCs [facility] ABSOLUTE NRBC 0.00 0.00 K/uL [facility] Blood 11/17/2018 2:19 PM EDT 11/17/2018 2:25 PM EDT Raiza Carty PA-C LAB BLOOD ORDERABLES Final Resu lt Performing Organization Address [facility]/ZIP Co de Phone Number [address] [address] * (ABNORMAL) Folate (11/17/2018 2:19 PM EDT) FOLIC ACID >20.0(H) 4.2 - 19.9 ng/mL [facility] Blood 11/17/2018 2:19 PM EDT 11/17/2018 2:25 PM EDT Raiza Carty PA-C LAB BLOOD ORDERABLES Final Resu lt Performing Organization Address [facility] Co de Phone Number [address] [address] * (ABNORMAL) Iron and iron binding capacity (11/17/2018 2:19 PM EDT) IRON 35 30 - 160 ug/dL [facility] IRON BINDING CAPACITY 315 228 - 428 ug/dL [facility] TRANSFERRIN SATURAT. 11(L) 15 - 50 % [facility] Blood 11/17/2018 2:19 PM EDT 11/17/2018 2:25 PM EDT Raiza Carty PA-C LAB BLOOD ORDERABLES Final Resu lt Performing Organization Address [facility] Co de Phone Number [address] [address] documented in this encounter Visit Diagnoses Diagnosis Anemia, unspecified type- Primary documented in this encounter Additional Health Concerns Infection Onset Date Last Indicated Resolved Time CoV-Risk 03/13/2020 03/14/2020 03/27/2020 1:25 AM EDT CoV-Exposed Comment:Recent close contact 09/06/2020 09/06/2020 09/20/2020 1:25 AM EST MRSA 11/24/2022 11/24/2022 11/23/2024 1:21 AM EDT documented as of this encounter Care Teams Bending Roll Operator Relationship Specialty Start Date End Date Chrissy Baker NP [address] [place] [address] PCP - General 06/25/17 12/29/21 Carrie Gallardo PA [address] [place] [address] [email or web address] PCP - General 12/30/21 documented as of this encounter Additional Source Comments The information contained in this document represents components of the legal health record. It is not the complete legal health record.[facility]
--- OUTSIDE RECORDS SUMMARY | 2025-05-11 13:39 | XMS_ITS | Encounter Summary ---
Author Organization [facility] Address [address] [place] [address] Phone Care Team Providers Care Sensitized Paper Tester Name Role Phone Chrissy Baker NP Primary Care Provider [phone] Carrie Gallardo Primary Care Provider [phone] Encounter Details Date Type Department Care Team (Late st Contact Info) Description 10/28/2018 Procedure Pass [facility] Admitting Dept Virtual Department [address] [place] [address] Social History Tobacco Use Types Packs/Day Years Used Date Smoking Tobacco: Former Cigarettes Q uit: 2007 Smokeless Tobacco: Never Alcohol Use Standard Drinks/Week [...] documented as of this encounter Care Teams Sensitized Paper Tester Relationship Specialty Start Date End Date Chrissy Baker NP [address] [place] [address] PCP - General 06/25/17 12/29/21 Carrie Gallardo PA [address] [place] [address] PCP - General 12/30/21 documented as of this encounter Additional Source Comments The information contained in this document represents components of the legal health record. It is not the complete legal health record.[facility]
--- OUTSIDE RECORDS SUMMARY | 2025-05-11 13:39 | XMS_ITS | Encounter Summary ---
Author Organization [facility] Address [address] [place] [address] Phone Care Team Providers Care Railroad Surveyor Name Role Phone Chrissy Baker [place] Primary Care Provider [phone] Carrie Gallardo Primary Care Provider [phone] Encounter Details Date Type Department Care Team (Late st Contact Info) Description 07/15/2021 Procedure Pass [facility], [facility] [address] [place] [address] Social History Tobacco Use Types Packs/Day Years [...] documented as of this encounter Care Teams Railroad Surveyor Relationship Specialty Start Date End Date Chrissy Baker SHOEBLACK [address] [place] [address] PCP - General 06/25/17 12/29/21 Carrie Gallardo PA [address] [place] [address] [email or web address] PCP - General 12/30/21 documented as of this encounter Additional Source Comments The information contained in this document represents components of the legal health record. It is not the complete legal health record.[facility]
--- OUTSIDE RECORDS SUMMARY | 2025-05-11 13:39 | XMS_ITS | Encounter Summary ---
Author Organization [facility] Address [address] [facility] [address] [facility] [address] [place] [address] Phone Care Team Providers Care Bowling Or Skating Front Desk Clerk Name Role Phone Chrissy Baker NP Primary Care Provider [phone] Carrie Gallardo Primary Care Provider [phone] Encounter Details Date Type Department Care Team (Late st Contact Info) Description 10/03/2020 Procedure Pass [facility], [facility] [address] [place] [address] Social History Tobacco Use Types Packs/Day Years [...] on file documented as of this encounter Last Filed Vital Signs Vital Sign Reading Time Taken Comments Blood Pressure - - Pulse - - Temperature - - Respiratory Rate - - Oxygen Saturation - - Inhaled Oxygen Concentration - - Weight 63.5 kg (140 lb) 10/03/2020 1:44 PM EST Height 160 cm (5' 3 ) 10/03/2020 1:44 PM EST Body Mass Index 24.8 10/03/2020 1:44 PM EST documented in this encounter Plan of Treatment Not on file documented as of this encounter Visit Diagnoses Not on filedocumented in this encounter Additional Health Concerns Infection Onset Date Last Indicated Resolved Time 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 It is not the complete legal health record.[facility]
--- OUTSIDE RECORDS SUMMARY | 2025-05-11 13:39 | XMS_ITS | Encounter Summary ---
Author Organization [facility] Address [address] [facility] [address] [place] [address] Phone Care Team Providers Care Operating Table Assembler Name Role Phone Chrissy Baker NP Primary Care Provider [phone] Carrie Gallardo Primary Care Provider [phone] Encounter Details Date Type Department Care Team (Late st Contact Info) Description 07/15/2021 Prep for Surgery [facility] Orthopedics & Sports Medicine [address] [place] [address] Anabella Tony MD [address] [place] [address] Orthopedics & Sports Medicine, [place] [address] [email or web address] Social History Tobacco Use Types Packs/Day Years [...] documented as of this encounter Care Teams Operating Table Assembler Relationship Specialty Start Date End Date Chrissy Baker NP [address] [place] [address] PCP - General 06/25/17 12/29/21 Carrie Gallardo PA [address] [place] [address] [email or web address] PCP - General 12/30/21 documented as of this encounter Additional Source Comments The information contained in this document represents components of the legal health record. It is not the complete legal health record.[facility]
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
--- OUTSIDE RECORDS SUMMARY | 2025-05-11 13:39 | XMS_ITS | Encounter Summary ---
Author Organization [facility] Address [address] [place] [address] Phone Care Team Providers Care Capacity Planner Name Role Phone Chrissy Baker [employer] Primary Care Provider [phone] Carrie Gallardo Primary Care Provider Encounter Details Date Type Department Care Team (Late st Contact Info) Description 06/14/2021 Procedure Pass OR Admitting Dept - Virtual Department [address] [place] [address] Social History Tobacco Use Types Packs/Day Years [...] documented as of this encounter Care Teams Capacity Planner Relationship Specialty Start Date End Date Chrissy Baker NP [address] [place] [address] PCP - General 06/25/17 12/29/21 Carrie Gallardo PA [address] [place] [phone] [email or web address] PCP - General 12/30/21 documented as of this encounter Additional Source Comments The information contained in this document represents components of the legal health record. It is not the complete legal health record.[facility]
--- OUTSIDE RECORDS SUMMARY | 2025-05-11 13:39 | XMS_ITS | Encounter Summary ---
Author Organization [facility] Address [address] [place] [address] Phone Care Team Providers Care Plate Glass Grinder Name Role Phone Chrissy Baker CROWN POUNCER Primary Care Provider [phone] Carrei Gallardo Primary Care Provider [phone] Encounter Details Date Type Department Care Team (Late st Contact Info) Description 08/28/2021 Procedure Pass OR Admitting Dept - Virtual Department [address] [place] [address] Social History Tobacco Use Types Packs/Day Years [...] documented as of this encounter Care Teams Plate Glass Grinder Relationship Specialty Start Date End Date Chrissy Baker NP [address] [place] [address] PCP - General 06/25/17 12/29/21 Carrie Gallardo PA [address] [place] [phone] [email or web address] PCP - General 12/30/21 documented as of this encounter Additional Source Comments The information contained in this document represents components of the legal health record. It is not the complete legal health record.[facility]
[2025-05-11 14:00] LABS: Folate 18.7 ng/mL (> or = 4.0); Vitamin B12 681 pg/mL (200-900)
[2025-05-11 14:01] LABS: Ferritin 62 ng/mL (10-250)
[2025-05-12 11:19] LABS: Immunoglobulin A <5 mg/dL (47-310)
[2025-05-15 21:08] LABS: Transglutaminase Ab IgG <1.0 U/mL
== END 2025-05-11 12:10 | disposition home or self-care (01) ==
LOC: HO.10HDL 12:09
PROVIDERS: Visit Provider Internal Medicine
DX: Z01.84 Encounter for antibody response examination (principal); K58.9 Irritable bowel syndrome, unspecified; D64.9 Anemia, unspecified
CPT/HCPCS: 36415; 82607; 82728; 82746; 82784; 83540; 85025; 86231; 86258; 86364